=== PATIENT | male | born 1940 | race Caucasian/White ===

== ENCOUNTER 2019-06-27 19:14 | Emergency (ER) | payer OTHER, SELFPAY ==
[2019-06-27 19:25] VITALS: BP 167/101; PULSE 104; RESP 18; TEMP 37; O2SAT 97; BMI 24.4
--- NOTE | 2019-06-27 19:34 | XR_ITS ---
WS: [id number] LEFT HAND: 3 VIEW(S) TECHNIQUE: PA, oblique and lateral. HISTORY: trauma COMPARISON: None available. Minimally comminuted fracture involving the middle phalanx of the second finger. Fracture is displace d volarly with overlapping of the multiple fracture fragments. No definite intra-articular extension. There is an additional comminuted fracture without displacement involving the terminal tuft of the f ourth finger. Indeterminate for nondisplaced fracture terminal tuft of the third finger. Soft tissue swelling around the second, third and fourth fingers. XR/XR hand LT min 3V* [id number] IMPRESSION: 1. Comminuted fracture with overlapping and displaced fragments involving the middle phalanx second finger. 2. Comminuted but nondisplaced fracture terminal tuft fourth finger. 3. Indeterminate for nondisplaced fracture terminal tuft third finger.
--- NOTE | 2019-06-27 19:36 | ED_ITS ---
HPI - Wound/Laceration General: Chief Complaint: Wound/Laceration Stated Complaint: Left finger pain Time Seen by Provider: 06/27/19 19:25 History of Present Illness: HPI narrative: Patient was on a riding lawnmower and reach back to move the piece of equipment that catch the leaves and stuff and he was going on at the limb and he got caught between the limb and that piece of equipment and he sustained lacerations to 3 of his fingers. Tetanus is not up-to-date Onset (ago): minute(s) Location: other Extremity Location: Left: hand (Fingers) Place: home Patient tetanus UTD: No Context: accidental Associated symptoms: Reports no associated symptoms; Denies chills, fever(s), nausea or vomiting Treatments prior to arrival: bandage and other (Patient does take blood thinner) Review of Systems Const: Denies: fever, chills or body aches Eyes: Denies: change in vision or blurry vision ENMT: Denies: throat pain or nasal congestion Card: Denies: chest pain or shortness of breath on exertion Resp: Denies: shortness of breath, productive cough or non-productive cough GI: Denies: abdominal pain, nausea or vomiting : Denies: difficulty urinating Musc: Reports: extremity pain (Lacerations to 3 of his fingers on left hand possible fracture) Skin/Breast: Denies: rash Neuro: Denies: headache Psych: Denies: anxiety or depression Travis/Lymph: Denies: easy bruising PFSH ED PFSH: Social History Smoking and tobacco status: never smoked Physical Exam Const: COMMON NORMALS: no apparent distress, average body habitus and oriented x3 HENMT: COMMON NORMALS: normocephalic HEAD & SCALP: normal to inspection and normocephalic FACE & SINUS: normal facial exam Eye: COMMON NORMALS: conjunctivae normal GENERAL EYE: normal appearance of both eyes CONJUNCTIVA: Yes conjunctivae normal Neck/C-Spine: COMMON NORMALS: no JVD Chest: COMMONS NORMALS: inspection of chest normal Resp: COMMON NORMALS: normal respiratory effort and clear to auscultation bilaterally AUSCULTATION: clear to auscultation bilaterally Cardio: COMMON NORMALS: no JVD, regular rate and regular rhythm RATE: regular rate RHYTHM: regular rhythm GI: COMMON NORMALS: normal to inspection, nondistended, normoactive bowel sounds Extremity: COMMON NORMALS: normal to inspection and full ROM LEFT UPPER EXTREMITY: Yes hand & digits (Left #5 4 and 3 have deep and long lacerations irregular. Patient has full range of motion of all 3 fingers. Open to the bone. Neurovascular status intact. Tendon function appears normal in all 3 of those fingers. Ring finger might have a fracture feel like a pop when I moved it.) Neuro: COMMON NORMALS: oriented x3 Procedures Laceration Laceration 1: Site: hand Side (If applicable): left Size (cm): 3 Description: stellate, irregular and contaminated Depth: involves muscle layer Local Anesthetic: lidocaine 2% Amount of anesthesia used (mL): 2 Pre-repair: wound explored, irrigated extensively and wound margins revised Size (cm): 3-0 Number of sutures: 4 Laceration 2: Site: hand (#3 finger dorsal) Side (If applicable): left Size (cm): 5 Description: linear, irregular and contaminated Depth: simple, single layer and involves muscle layer Local Anesthetic: lidocaine 2% Amount of anesthesia used (mL): 3 Pre-repair: wound explored, irrigated extensively and deep structures intact Skin layer closed with: vicryl Size (cm): 3-0 Number of sutures: 15 Technique: simple, interrupted Laceration 3: Site: hand (#3 plamar) Side (If applicable): left Size (cm): 3 Description: irregular and contaminated Depth: simple, single layer Local Anesthetic: lidocaine 2% Amount of anesthesia used (mL): 2 Pre-repair: wound explored, irrigated extensively and deep structures intact Skin layer closed with: vicryl Size (cm): 3-0 Number of sutures: 6 Technique: simple, interrupted Laceration 4: Site: hand (#4 dorsal) Side (If applicable): left Size (cm): 4 Description: irregular and contaminated Depth: involves muscle layer Local Anesthetic: lidocaine 2% Amount of anesthesia used (mL): 2 Pre-repair: wound explored, irrigated extensively, deep structures intact and extensive debridement Skin layer closed with: vicryl Size (cm): 3-0 Number of sutures: 8 Technique: simple, interrupted Course Vital Signs: Vital signs: Vital Signs Temperature 98.6 F 06/27/19 19:25 Pulse Rate 104 H 06/27/19 19:25 Respiratory Rate 18 03/29/20 19:25 Blood Pressure 167/101 03/29/20 19:25 Pulse Oximetry 97 06/27/19 19:25 MDM - Wound/Laceration MDM Narrative: Medical decision making narrative: Spoke with Dr. Barillas and Dr. Serna about patient's injury Dr. Serna will see the patient up in his clinic tomorrow # [phone] Discharge Plan Discharge Prescriptions: No Action Unable to Assess RF: 0 Coding Level of Care Code ED [place] Blocker for Chg Fwd Exam Comprehensive
[2019-06-27] MEDS: tetanus-dipt-pertussis 0.5 mL SDV IM (19:52)
[2019-06-27] MEDS: cephALEXin 500 mg Capsule PO (20:42)
[2019-06-27] MEDS: lidocaine 2% INJ 20 mL INJECTION (20:42)
[2019-06-27 21:14] VITALS: BP 172/107; PULSE 97; RESP 18; O2SAT 100
--- NOTE | 2019-06-27 21:19 | PC.NURSE ---
Assessment reviewed and verified
== END 2019-06-27 21:14 | disposition home or self-care (01) ==
PROVIDERS: Emergency Provider Nurse Practitioner Family; Family Provider Nurse Practitioner; PCP Nurse Practitioner
DX: S61.217A Laceration without foreign body of left little finger without damage to nail, initial encounter (principal); S61.215A Laceration without foreign body of left ring finger without damage to nail, initial encounter; S61.213A Laceration without foreign body of left middle finger without damage to nail, initial encounter; W31.89XA Contact with other specified machinery, initial encounter; Y93.H9 Activity, other involving exterior property and land maintenance, building and construction; Z23 Encounter for immunization
CPT/HCPCS: 12004; 12042; 12045; 12345; 73130; 90471; 90715; 99281; 99283; J2001

== ENCOUNTER 2020-03-21 12:35 | Emergency (ER) | payer OTHER, MEDICARE, SELFPAY ==
[2020-03-21] VITALS (7 sets, daily range): BP systolic 132–156; BP diastolic 74–92; PULSE 72–82; RESP 16–18; TEMP 36.5; O2SAT 95–98; BMI 24.4
--- NOTE | 2020-03-21 13:03 | XR_ITS ---
WS: [id number] PELVIS AND BILATERAL HIPS TECHNIQUE: AP pelvis and AP and lateral hips. HISTORY: Pain COMPARISON: None available. Pelvis: Mild narrowing of the SI joints and hip joints. Facet joint arthritis in the lower lumbar spi ne with large osteophytes extending laterally from the disc spaces at L4-5. No osseous destruction. M oderate vascular calcifications in the iliac arteries. Right hip: Moderate narrowing of the hip joint. Sclerosis along the superior acetabulum. Irregularity along the cortical surfaces. Left hip: Mild to moderate narrowing of the hip joint with sclerosis along the superior acetabulum. N o fracture or osteolytic changes. XR/XR hip BI m 5V wo/w pel* [id number] IMPRESSION: 1. Moderate RIGHT hip joint osteoarthritis. 2. Mild to moderate LEFT hip joint osteoarthritis. 3. Moderate atherosclerosis iliac arteries.
--- NOTE | 2020-03-21 13:03 | XR_ITS ---
WS: [id number] PORTABLE CHEST HISTORY: Pain COMPARISON: 08/13/2017 No pneumonia. Normal vasculature. Benign granulomata in each lung with no change. No pleural effusion or pneumothorax. Cardiac size: Normal. Mediastinum/Aorta: Mild atherosclerosis aorta. No osseous abnormality seen. XR/XR chest 1V portable [id number] IMPRESSION: Unremarkable portable chest.
--- NOTE | 2020-03-21 14:11 | CTR_ITS ---
PROCEDURE INFORMATION: Exam: CT Chest With Contrast; Diagnostic Exam date and time: 03/21/2020 2:14 PM Age: 80 years old Clinical indication: Abdominal pain; Generalized; Chest pain; Type not specified; Prior surgery; Surgery date: 6+ months; Surgery type: Exploratory TECHNIQUE: Imaging protocol: Diagnostic computed tomography of the chest with intravenous contrast. Total images: 517 Radiation optimization: All CT scans at this facility use at least one of these dose optimization techniques: automated exposure control; mA and/or kV adjustment per patient size (includes targeted exams where dose is matched to clinical indication); or iterative reconstruction. Contrast material: VISIPAQUE 320; Contrast volume: 95 ml; Contrast route: INTRAVENOUS (IV); COMPARISON: CR XR chest 1V portable [id number] 03/21/2020 1:29 PM RADIATION DOSE METRICS: Total DLP (mGy-cm): 1347.48 FINDINGS: Lungs: No visible active interstitial or alveolar airspace disease. Stable calcified granulomas of antecedent disease. Pleural space: Scant right pleural effusion. Heart: Cardiac structures and configuration with mild cardiomegaly. Mild coronary artery disease. No visible pericardial effusion. Pulmonary arteries: No visible central pulmonary embolism/pulmonary arterial thrombus. Aorta: The thoracic aorta is nonaneurysmal. Moderate arterial sclerotic disease. 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 Lymph nodes: No visible active mediastinal or hilar lymphadenopathy. Bones/joints: Minimally displaced proximal sternum fracture just below the sternal angle. Degenerative disease of the spine with spondylosis deformans and diffuse idiopathic skeletal hyperostosis. Potential recent avulsion fracture of the T4 spinous process. Please correlate with site of pain. No other visible acute osseous abnormality within the field of view. Soft tissues: Unremarkable. IMPRESSION: 1. Minimally displaced proximal sternum fracture just below the sternal angle. 2. Potential recent avulsion fracture of the T4 spinous process. Please correlate with site of pain. 3. Scant right pleural effusion. 4. Mild cardiomegaly with associated mild coronary artery disease. PROCEDURE INFORMATION: Exam: CT Abdomen And Pelvis With Contrast Exam date and time: 03/21/2020 2:14 PM Age: 80 years old Clinical indication: Abdominal pain; Generalized; Chest pain; Type not specified; Prior surgery; Surgery date: 6+ months; Surgery type: Exploratory TECHNIQUE: Imaging protocol: Computed tomography of the abdomen and pelvis with intravenous contrast. Radiation optimization: All CT scans at this facility use at least one of these dose optimization techniques: automated exposure control; mA and/or kV adjustment per patient size (includes targeted exams where dose is matched to clinical indication); or iterative reconstruction. Contrast material: VISIPAQUE 320; Contrast volume: 95 ml; Contrast route: INTRAVENOUS (IV); COMPARISON: CR XR chest 1V portable [id number] 03/21/2020 1:29 PM RADIATION DOSE METRICS: Total DLP (mGy-cm): 1347.48 FINDINGS: Liver: Calcified hepatic granulomas of antecedent disease. No visible hepatic mass or cystic structure. Gallbladder and bile ducts: Cholelithiasis. Three gallstones are identified the largest measuring 9 mm. No gallbladder wall thickening or pericholecystic fluid. Pancreas: Pancreas unremarkable. No visible pancreatic ductal ectasia. Spleen: Calcified splenic granulomas of antecedent disease. Spleen otherwise unremarkable. Adrenal glands: Adrenal glands unremarkable. Kidneys and ureters: Stable bilateral simple renal cortical cysts. Largest cyst superior pole right kidney measures 32 mm. No follow-up recommended. No hydronephrosis or perinephric fluid. No visible nephrolithiasis. Renal arteriosclerosis. No visible ureterolithiasis. Stomach and bowel: Assessment of the hollow viscus fails to reveal evidence of active or acute pathology. Nonobstructed bowel pattern. No visible acute diverticulitis. No visible adynamic or reactive ileus. Minimal diverticulosis coli. Appendix: The appendix is visualized and appears noninflamed. Intraperitoneal space: No visible pneumoperitoneum. No visible intraperitoneal ascites. No visible evidence of mesenteric lymphadenitis or active mesenteritis/panniculitis. Vasculature: Portal vein patent. The abdominal aorta is nonaneurysmal. Extensive arterial sclerotic disease. Moderate intramural thrombus stable since last evaluation 2018. No intimal flap or dissection. Lymph nodes: No current visible evidence of active mesenteric or retroperitoneal lymphadenopathy. Urinary bladder: Urinary bladder unremarkable. Reproductive: Marked prostate hypertrophy. Bones/joints: Degenerative disease and degenerative disc disease of the spine most advanced L5/S1. Facet arthrosis. Spondylosis deformans. Scoliosis. Stable bone cyst and sclerotic focus left iliac bone since 2018. Soft tissues: Unremarkable. CT/CT chest abd pel w con* IMPRESSION: 1. No visible evidence of acute abdominal or pelvic pathologic process. 2. Cholelithiasis. 3. Other nonurgent, nonemergent, chronic, and age related findings as detailed in text above. COMMENTS: Consistent with the [employer]'s Incidental Findings Committee white paper ([employer] Marlon [employer]iol 2018): Any incidental renal lesion less than 1 cm or classified as too small to characterize, or any incidental cystic renal lesion characterized as simple-appearing, is likely benign. No follow-up imaging is recommended for these lesions per consensus recommendations based on imaging criteria. Radiation Dose CTDIVOL = (mGy): DLP = 1347.48~1347.48 (mGy-cm)
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
[2020-03-21] MEDS: morphine 4 mg/mL SDV 1 mL IVP ×2 (14:48→18:40)
[2020-03-21] MEDS: ondansetron 2 mg/ML SDV 2 mL 4 MG IVP ×2 (14:48→18:40)
[2020-03-21] MEDS: sodium chloride 0.9% 500 ML 999 ML IV (14:52)
[2020-03-21 15:17] LABS: Basophils % 0.5 %; Eosinophils # 0.1 10^3/uL (0.0-0.8); Eosinophils % 0.8 %; Hematocrit 39.1 % (42.0-52.0); Lymphocytes # 0.9 10^3/uL (0.8-4.8); Lymphocytes % 15.3 %; Mean Corpuscular HGB Conc 33.2 g/dL (30.0-36.0); Mean Corpuscular Hemoglobin 30.7 pg (28.0-34.0); Mean Corpuscular Volume 92.2 fL (80-94); Mean Platelet Volume 9.5 fL (7.4-10.4); Monocytes # 0.5 10^3/uL (0.2-0.9); Monocytes % 8.7 %; Neutrophils # 4.51 10^3/uL (1.8-7.7); Neutrophils % 74.4 %; Nucleated Red Blood Cells % 0 %; Platelet Count 157 10^3/cmm (130-400); Red Blood Count 4.24 10^6/uL (4.1-5.3); Red Cell Distribution Width 12.3 % (12.1-15.1); White Blood Count 6.1 10^3/uL (4.0-10.0)
[2020-03-21 15:40] LABS: Alanine Aminotransferase 12 U/L (0-41); Albumin Level 3.8 g/dL (3.5-5.2); Alkaline Phosphatase 69 IU/L (40-130); Aspartate Amino Transferase 22 U/L (0-40); Blood Urea Nitrogen 28 mg/dL (8-23); Calcium 9.1 mg/dL (8.5-10.5); Carbon Dioxide 27 mmol/L (22-29); Chloride 100 mmol/L (98-107); Globulin 2.9 g/dL (1.3-4.6); Glucose 114 mg/dL (65-115); Osmolality Calculated 290 mOsm/kg (285-295); Sodium 137 mmol/L (136-145); Total Bilirubin 1.9 mg/dL (0.15-1.2); Total Protein 6.7 g/dL (6.6-8.7)
[2020-03-21] MEDS: iodixanol 320 mg/mL 100mL Btl IV (16:54)
--- NOTE | 2020-03-21 19:00 | PC.NURSE ---
Assumed care from Gregoria BARAHONA
[2020-03-21 20:54] LABS: Add Urine Microscopic? YES; Bacteria Urine TRACE /hpf; Bilirubin Urine Neg (Negative); Blood Urine 3+ (Negative); Glucose Urine UA Norm (Normal); Ketones Urine Negative (Negative); Leukocyte Esterase Urine Negative (Negative); Nitrate Urine Negative (Negative); Protein Urine Trace (Negative); RBC Urine 0-4 /hpf (0-2); Specific Gravity, Urine 1.015 (1.005-1.030); Squamous Epithelial Cell Urine RARE /hpf (0-5); Urine Appearance Clear (CLEAR); Urine Color Yellow (Yellow); Urobilinogen Urine Norm (Negative); WBC Urine RARE /hpf (0-5); pH Urine 5 (5-7)
== END 2020-03-21 20:47 | disposition short-term general hospital (02) ==
PROVIDERS: Family Medicine; Emergency Provider Emergency Medicine; PCP Nurse Practitioner
DX: S22.20XA Unspecified fracture of sternum, initial encounter for closed fracture (principal); S22.048A Other fracture of fourth thoracic vertebra, initial encounter for closed fracture; Z79.01 Long term (current) use of anticoagulants; I48.20 Chronic atrial fibrillation, unspecified; J44.9 Chronic obstructive pulmonary disease, unspecified; I25.2 Old myocardial infarction; Z87.891 Personal history of nicotine dependence; V89.2XXA Person injured in unspecified motor-vehicle accident, traffic, initial encounter
CPT/HCPCS: 12345; 70450; 71045; 71260; 73523; 74177; 80053; 81001; 85025; 85610; 96374; 96375; 96376; 99283; 99285; J2270; J2405; J7040; Q9967

== ENCOUNTER 2020-04-24 12:27 | Emergency (ER) | payer MEDICARE, OTHER, SELFPAY ==
[2020-04-24 12:35] VITALS: BP 146/93; PULSE 108; RESP 14; TEMP 36.8; O2SAT 97; BMI 23.7
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
== END 2020-04-24 13:15 | disposition home or self-care (01) ==
PROVIDERS: Emergency Provider Nurse Practitioner Family; PCP Nurse Practitioner
DX: S39.012A Strain of muscle, fascia and tendon of lower back, initial encounter (principal); Z79.01 Long term (current) use of anticoagulants; I48.20 Chronic atrial fibrillation, unspecified; I25.2 Old myocardial infarction; Z87.891 Personal history of nicotine dependence; X58.XXXA Exposure to other specified factors, initial encounter
CPT/HCPCS: 12345; 99281

== ENCOUNTER 2021-09-05 14:28 | Emergency (ER) | payer OTHER, MEDICARE, SELFPAY ==
[2021-09-05 16:32] VITALS: BP 152/91; PULSE 117; RESP 16; TEMP 36.4; O2SAT 98; BMI 24.4
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
--- NOTE | 2021-09-05 17:10 | USR_ITS ---
PROCEDURE INFORMATION: Exam: US Duplex Right Lower Extremity Arteries Or Arterial Bypass Grafts Exam date and time: 09/05/2021 5:22 PM Age: 81 years old Clinical indication: Other: Cold leg. Pain; Additional info: Pulseless/cold limb TECHNIQUE: Imaging protocol: Right Real-time duplex scan of the arteries or arterial bypass grafts of the right lower extremity with 2-D brice scale, color Doppler flow and spectral waveform analysis. Images documented and saved. COMPARISON: CT chest abd pel w con* 03/21/2020 4:44 PM FINDINGS: Right common femoral artery: Negative for color flow seen in the lower extremity arterial system with monophasic pulse waveforms demonstrated in the distal iliac, common femoral and proximal femoral arteries, suggesting more proximal occlusion, consider further evaluation with an angiogram. Right superficial femoral artery: See above. Right popliteal artery: See above. Right calf/foot arteries: See above. Soft tissues: No hematoma or collection. US/[place] [id number] IMPRESSION: Negative for color flow seen in the lower extremity arterial system with monophasic pulse waveforms demonstrated in the distal iliac, common femoral and proximal femoral arteries, suggesting more proximal occlusion, consider further evaluation with an angiogram.
--- NOTE | 2021-09-05 17:11 | ECG_ITS ---
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 Measurements Intervals [place] Rate: 110 P: OR: QRS: -15 QRSD: 108 T: 95 QT: 328 QTc: 444 Interpretive Statements ATRIAL FIBRILLATION WITH RAPID VENTRICULAR RESPONSE SEPTAL MYOCARDIAL INFARCTION , OF INDETERMINATE AGE [40+ ms Q WAVE IN V1/V2] Compared to ECG 08/14/2017 04:36:34 Myocardial infarct finding now present ST (T wave) deviation no longer present Electronically Signed On 09-05-2021 20:16:46 CDT by Anselmo Raymundo M.D. [email or web address]
[2021-09-05 17:35] LABS: Basophils % 0.2 %; Hematocrit 41.8 % (42.0-52.0); Lymphocytes # 0.6 10^3/uL (0.8-4.8); Lymphocytes % 6.2 %; Mean Corpuscular HGB Conc 33.5 g/dL (30.0-36.0); Mean Corpuscular Hemoglobin 30.8 pg (28.0-34.0); Mean Corpuscular Volume 92.1 fl (80-94); Mean Platelet Volume 9.1 fL (7.4-10.4); Monocytes # 0.3 10^3/uL (0.2-0.9); Monocytes % 3.6 %; Neutrophils # 8.51 10^3/uL (1.8-7.7); Neutrophils % 89.7 %; Nucleated Red Blood Cells % 0 %; Platelet Count 198 10^3/cmm (130-400); Red Blood Count 4.54 10^6/uL (4.1-5.3); Red Cell Distribution Width 12.7 % (12.1-15.1); White Blood Count 9.5 10^3/uL (4.0-10.0)
[2021-09-05] MEDS: nitroglycerin 1 gm/inch oint Pkt 1 INCH TOPICAL (17:40)
[2021-09-05 17:41] VITALS: RESP 27; O2SAT 98
[2021-09-05] MEDS: morphine 4 mg/mL SDV 1 mL IVP ×2 (17:41→20:00)
[2021-09-05] MEDS: ondansetron 2 mg/ML SDV 2 mL 4 MG IVP (17:41)
[2021-09-05 17:54] LABS: Alanine Aminotransferase 10 U/L (0-41); Albumin Level 4.4 g/dL (3.5-5.2); Alkaline Phosphatase 76 IU/L (40-130); Anion Gap 17.7 (5-19); Aspartate Amino Transferase 15 U/L (0-40); Blood Urea Nitrogen 22 mg/dL (8-23); Calcium 9.3 mg/dL (8.5-10.5); Carbon Dioxide 24 mmol/L (22-29); Chloride 99 mmol/L (98-107); Globulin 2.9 g/dL (1.3-4.6); Glucose 174 mg/dL (65-115); Lipase 25 U/L (13-60); Magnesium 1.8 mg/dL (1.7-2.3); Osmolality Calculated 290 mOsm/kg (285-295); Potassium 4.7 mmol/L (3.5-5.1); Sodium 136 mmol/L (136-145); Total Bilirubin 0.7 mg/dL (0.15-1.2); Total Protein 7.3 g/dL (6.6-8.7)
[2021-09-05] MEDS: heparin 5,000 unit/mL INJ 1 mL IV (17:58)
[2021-09-05] MEDS: heparin drip 25,000 UNIT/500 ML PREMIX 22.86 UNIT IV (17:59)
[2021-09-05 18:02] LABS: INR 0.99 (0.8-1.2)
[2021-09-05 18:03] LABS: Partial Thromboplastin Time 24.2 SECONDS (23.9-36.7)
[2021-09-05 18:08] LABS: Lactic Sepsis W/Reflex 2.8 mmol/L (0.5-2.2)
[2021-09-05 19:43] LABS: Reflex Lactate Order REFLEX LACTIC ORDERD
[2021-09-05 20:00] VITALS: RESP 22; O2SAT 97
[2021-09-05] MEDS: sodium chloride 0.9% 1,000 ML 125 ML IV (20:01)
[2021-09-05] MEDS: sodium chloride 0.9% 250 ML IV (20:01)
== END 2021-09-05 20:17 ==
PROVIDERS: Emergency Medicine; Emergency Provider Family Medicine; PCP Nurse Practitioner
DX: I70.221 Atherosclerosis of native arteries of extremities with rest pain, right leg (principal); I48.20 Chronic atrial fibrillation, unspecified; I25.2 Old myocardial infarction; Z79.01 Long term (current) use of anticoagulants; Z87.891 Personal history of nicotine dependence
CPT/HCPCS: 80053; 83605; 83690; 83735; 85025; 85610; 85730; 93005; 93926; 96374; 96375; 96376; 99285; J1644; J2270; J2405; J7030; J7050

== ENCOUNTER → 2021-10-17 12:05 | Outpatient (BNVA) | payer OTHER, SELFPAY | PROVIDERS: PCP Nurse Practitioner; Visit Provider Internal Medicine | DX: I48.20 Chronic atrial fibrillation, unspecified (principal); I50.20 Unspecified systolic (congestive) heart failure; I73.9 Peripheral vascular disease, unspecified | CPT/HCPCS: 99204 ==

== ENCOUNTER → 2021-10-25 07:56 | Outpatient (BNVA) | payer OTHER, SELFPAY | PROVIDERS: PCP Nurse Practitioner; Visit Provider Podiatrist Foot & Ankle Surgery | DX: M21.611 Bunion of right foot (principal); M21.612 Bunion of left foot; I73.9 Peripheral vascular disease, unspecified; L60.3 Nail dystrophy; M20.41 Other hammer toe(s) (acquired), right foot; M20.42 Other hammer toe(s) (acquired), left foot | CPT/HCPCS: 11721; 99203 ==

== ENCOUNTER → 2021-10-31 09:39 | Outpatient (BNVA) | payer OTHER, SELFPAY | PROVIDERS: PCP Nurse Practitioner; Visit Provider Nurse Practitioner Family | DX: N40.1 Benign prostatic hyperplasia with lower urinary tract symptoms (principal) | CPT/HCPCS: 51741; 51798; 81003; 99213 ==

== ENCOUNTER → 2022-01-16 15:14 | Outpatient (BNVA) | payer OTHER, SELFPAY | PROVIDERS: PCP Nurse Practitioner; Visit Provider Internal Medicine | DX: I48.20 Chronic atrial fibrillation, unspecified (principal); I50.20 Unspecified systolic (congestive) heart failure; I73.9 Peripheral vascular disease, unspecified; Z87.891 Personal history of nicotine dependence | CPT/HCPCS: 99214 ==

== ENCOUNTER → 2022-02-12 12:24 | Outpatient (BNVA) | payer OTHER, SELFPAY | PROVIDERS: PCP Nurse Practitioner; Visit Provider Urology | DX: R31.29 Other microscopic hematuria (principal); N40.1 Benign prostatic hyperplasia with lower urinary tract symptoms | CPT/HCPCS: 51741; 51798; 81003; 99213 ==

== ENCOUNTER → 2022-07-17 15:10 | Outpatient (BNVA) | payer OTHER, SELFPAY | PROVIDERS: PCP Nurse Practitioner; Visit Provider Internal Medicine | DX: I48.20 Chronic atrial fibrillation, unspecified (principal); I50.20 Unspecified systolic (congestive) heart failure; I73.9 Peripheral vascular disease, unspecified; Z87.891 Personal history of nicotine dependence; Z79.01 Long term (current) use of anticoagulants | CPT/HCPCS: 99214 ==

== ENCOUNTER 2023-02-07 13:56 | Emergency (ER) | payer OTHER, SELFPAY ==
[2023-02-07 13:58] VITALS: PULSE 73; RESP 18; TEMP 36.9; O2SAT 94; BMI 23.0
[2023-02-07 14:05] VITALS: BP 126/70
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
== END 2023-02-07 14:27 | disposition home or self-care (01) ==
PROVIDERS: Emergency Provider Physician Assistant; PCP Nurse Practitioner
DX: Z04.1 Encounter for examination and observation following transport accident (principal); Z79.01 Long term (current) use of anticoagulants; Z79.02 Long term (current) use of antithrombotics/antiplatelets; Z87.891 Personal history of nicotine dependence; J44.9 Chronic obstructive pulmonary disease, unspecified; I25.2 Old myocardial infarction; V89.2XXA Person injured in unspecified motor-vehicle accident, traffic, initial encounter
CPT/HCPCS: 99281

== ENCOUNTER → 2023-06-02 12:43 | Outpatient (BNVA) | payer OTHER, SELFPAY | PROVIDERS: PCP Nurse Practitioner; Visit Provider Internal Medicine | DX: I48.20 Chronic atrial fibrillation, unspecified (principal); Z79.01 Long term (current) use of anticoagulants; I50.20 Unspecified systolic (congestive) heart failure; I73.9 Peripheral vascular disease, unspecified; Z87.891 Personal history of nicotine dependence | CPT/HCPCS: 99214 ==

== ENCOUNTER 2023-06-05 09:34 | Outpatient (CLI) | payer OTHER, SELFPAY ==
--- NOTE | 2023-06-05 10:00 | USCV_ITS ---
Shilo Alphonse Age: 83 Gender: M : 1940 Exam Date: 06/05/2023 10:14 Ordering Phys: Tavares Hassan M.D ([email or web address]) Technologist: MINNA Exam Location: [facility] – [place] Indication: murmur BP: 123 / 73 HR: 0 Rhythm: Sinus Technical Quality: Adequate MEASUREMENTS (Male / Female) Normal Values 2D ECHO LV Diastolic Diameter PLAX 5.1 cm 4.2 - 5.9 / 3.9 - 5.3 cm IVS Diastolic Thickness 1.1 cm 0.6 - 1.0 / 0.6 - 0.9 cm IVS Systolic Thickness 1.6 cm LVPW Diastolic Thickness 1.2 cm 0.6 - 1.0 / 0.6 - 0.9 cm LVPW Systolic Thickness 1.9 cm LVOT Diameter 2.0 cm LV Ejection Fraction 2D Teich 61.5 % LV Ejection Fraction MOD 2C 52.7 % LV Ejection Fraction 2C AL 54.4 % LA Diameter 3.4 cm RA Systolic Volume 4C AL 79.5 ml RA Systolic Volume 4C MOD 78.7 ml Aorta at Sinotubular Diameter 2.9 cm IVC Diameter 1.5 cm M-MODE LA Ao Ratio MM 1.1 AV Cusp Separation MM 2.7 cm DOPPLER AV Peak Velocity 95.0 cm/s LVOT Peak Velocity 71.0 cm/s AV Area Cont Eq vti 2.6 cm squared AV Area Cont Eq pk 2.3 cm squared MV Peak Velocity 82.0 cm/s MV Area PHT 4.1 cm squared Mitral E to A Ratio 1.7 TR Peak Velocity 285.0 cm/s TR Peak Gradient 32.5 mmHg TR Mean Velocity 194.0 cm/s TR Mean Gradient 18.3 mmHg TR Velocity Time Integral 77.4 cm TV Peak E Velocity 135.0 cm/s PV Peak Velocity 72.0 cm/s FINDINGS Left Ventricle Left ventricle is normal in size. LV systolic function is normal with EF of 55 to 60%. No regional wall motion abnormalities are seen. Right Ventricle Normal in size and function Right Atrium Dilated Left Atrium Severely dilated Mitral Valve Structurally normal mitral valve. Mild to moderate mitral regurgitation. Aortic Valve Structurally normal aortic valve. Mild aortic regurgitation. Tricuspid Valve Mild tricuspid regurgitation. Pulmonary artery systolic pressure is normal. Pulmonic Valve Mild pulmonic regurgitation. Pericardium Normal in size Aorta Normal in size IVC Appears to be normal CONCLUSIONS LV systolic function is normal with EF of 55 to 60%. Biatrial dilation. Mild to moderate mitral regurgitation. Mild aortic regurgitation Mild tricuspid regurgitation Mild pulmonic regurgitation Tavares Hassan MD (Electronically Signed) Final Date: 19 June 2023 12:40 S
== END 2023-06-05 09:35 | disposition home or self-care (01) ==
LOC: RAD 09:34
PROVIDERS: PCP Nurse Practitioner; Visit Provider Internal Medicine
DX: R07.9 Chest pain, unspecified (principal); R06.02 Shortness of breath
CPT/HCPCS: 93306

== ENCOUNTER 2023-07-18 11:08 | Inpatient (IN) | payer OTHER, SELFPAY ==
[2023-07-18] VITALS (26 sets, daily range): BP systolic 110–170; BP diastolic 70–129; PULSE 95–147; RESP 16–99; TEMP 36.4–36.5; O2SAT 82–100; BMI 24.4
--- NOTE | 2023-07-18 11:12 | CTR_ITS ---
PROCEDURE INFORMATION: Exam: CT Cervical Spine Without Contrast Exam date and time: 07/18/2023 11:25 AM Age: 83 years old Clinical indication: Injury or trauma; Fall; Blunt trauma TECHNIQUE: Imaging protocol: Computed tomography of the cervical spine without contrast. Radiation optimization: All CT scans at this facility use at least one of these dose optimization techniques: automated exposure control; mA and/or kV adjustment per patient size (includes targeted exams where dose is matched to clinical indication); or iterative reconstruction. COMPARISON: CT head wo con* [id number] 07/18/2023 11:25 AM RADIATION DOSE METRICS: Total DLP (mGy-cm): 674.6 FINDINGS: Bones/joints: Chronic degenerative changes are present in the cervical spine with osteophytes on the vertebral bodies and facet joint narrowing and hypertrophy. No fracture or other acute abnormality. No significant malalignment. Lungs: Bilateral upper lobe pulmonary infiltrates Vasculature: Bilateral carotid artery calcification. Soft tissues: Unremarkable. CT/CT cervical spin wo con* [id number] IMPRESSION: 1. No acute abnormality in the cervical spine. 2. Bilateral upper lobe pulmonary infiltrates.
--- NOTE | 2023-07-18 11:12 | CTR_ITS ---
PROCEDURE INFORMATION: Exam: CT Head Without Contrast Exam date and time: 07/18/2023 11:25 AM Age: 83 years old Clinical indication: Injury or trauma; Fall; Unconscious TECHNIQUE: Imaging protocol: Computed tomography of the head without contrast. Radiation optimization: All CT scans at this facility use at least one of these dose optimization techniques: automated exposure control; mA and/or kV adjustment per patient size (includes targeted exams where dose is matched to clinical indication); or iterative reconstruction. COMPARISON: CT head wo con* [id number] 03/21/2020 4:38 PM RADIATION DOSE METRICS: Total DLP (mGy-cm): 798.6 FINDINGS: Brain: There is hypodensity consistent with edema in the right basal ganglia, internal capsule and right periventricular estrada radiata which is consistent with recent nonhemorrhagic infarct. There is generalized chronic atrophy with prominence of the ventricles and sulci. Cerebral ventricles: Ventricles are prominent consistent with chronic atrophy. Paranasal sinuses: Visualized sinuses are unremarkable. No fluid levels. Mastoid air cells: Visualized mastoid air cells are well aerated. Bones/joints: Unremarkable. No acute fracture. Soft tissues: Unremarkable. CT/CT head wo con* [id number] IMPRESSION: Hypodensity consistent with edema in the right basal ganglia, internal capsule and periventricular white matter consistent with recent nonhemorrhagic infarct.
--- NOTE | 2023-07-18 11:12 | XR_ITS ---
WS: [id number] Exam: XR chest 1V portable [id number] Date/Time of Exam: 07/18/2023 11:12 AM Reason For Exam: fall Comparison 03/21/2020. Mild interstitial infiltrate in the LEFT upper lobe. Remaining lung lester are clear. No pneumothorax . No pleural effusion. Heart size top limits normal. The mediastinum is normal in contour. IMPRESSION: 1. Mild interstitial infiltrate in the LEFT upper lobe. Developing pneumonia not excluded.
--- NOTE | 2023-07-18 11:12 | CTR_ITS ---
PROCEDURE INFORMATION: Exam: CTA Chest With Contrast Exam date and time: 07/18/2023 11:31 AM Age: 83 years old Clinical indication: Injury or trauma; Fall; Generalized; Blunt trauma (contusions or hematomas); Additional info: SOB, fall TECHNIQUE: Imaging protocol: Computed tomographic angiography of the chest with contrast. Exam focused on the arteries. 3D rendering (Not supervised by radiologist): MIP and/or 3D reconstructed images were created by the technologist. Radiation optimization: All CT scans at this facility use at least one of these dose optimization techniques: automated exposure control; mA and/or kV adjustment per patient size (includes targeted exams where dose is matched to clinical indication); or iterative reconstruction. Contrast material: OMNI 350; Contrast volume: 100 ml; Contrast route: INTRAVENOUS (IV); COMPARISON: CT chest abdpel w/*[id number] 03/21/2020 4:44 PM RADIATION DOSE METRICS: Total DLP (mGy-cm): 1131.88 FINDINGS: Pulmonary arteries: No pulmonary arterial embolism seen. Aorta: Aortic atherosclerotic disease. Lungs: Consolidation in the anterior portions of both upper lobes. Lesser degree of consolidation right middle lobe. Pleural spaces: Small bilateral pleural effusions. Heart: Unremarkable. No cardiomegaly. No pericardial effusion. Lymph nodes: Unremarkable. No enlarged lymph nodes. Bones/joints: Diffuse degenerative disc disease. No acute bony abnormality seen. Remote sternal fracture. Soft tissues: Unremarkable. PROCEDURE INFORMATION: Exam: CT Abdomen And Pelvis With Contrast Exam date and time: 07/18/2023 11:31 AM Age: 83 years old Clinical indication: Injury or trauma; Fall; Generalized; Blunt trauma (contusions or hematomas); Additional info: SOB, fall TECHNIQUE: Imaging protocol: Computed tomography of the abdomen and pelvis with contrast. Radiation optimization: All CT scans at this facility use at least one of these dose optimization techniques: automated exposure control; mA and/or kV adjustment per patient size (includes targeted exams where dose is matched to clinical indication); or iterative reconstruction. Contrast material: OMNI 350; Contrast volume: 100 ml; Contrast route: INTRAVENOUS (IV); COMPARISON: CT chest abdpel w/*[id number] 03/21/2020 4:44 PM RADIATION DOSE METRICS: Total DLP (mGy-cm): 1131.88 FINDINGS: Liver: Hepatic steatosis. Punctate granulomata in the liver. No liver mass. Gallbladder and bile ducts: Multiple small gallstones. No gallbladder wall thickening. Gallbladder is mildly distended. Pancreas: Normal. No ductal dilation. Spleen: Normal. No splenomegaly. Adrenal glands: Normal. No mass. Kidneys and ureters: Multiple cysts in the kidneys. No evidence for renal obstruction. Stomach and bowel: Unremarkable. No obstruction. No mucosal thickening. Appendix: No evidence of appendicitis. Intraperitoneal space: Unremarkable. No free air. No significant fluid collection. Vasculature: Diffuse aortoiliac atherosclerotic disease with large amount of mural thrombus. Substantial calcifications in stenosis bilateral iliac arteries, most prominently origin of left common iliac. Lymph nodes: Unremarkable. No enlarged lymph nodes. Urinary bladder: Bladder is distended. Reproductive: Prostatic hypertrophy measuring up to 7 cm. Bones/joints: Diffuse degenerative changes in the lumbar spine. Mild anterolisthesis L4-L5. Mild nonacute L2 compression fracture. Soft tissues: Unremarkable. CT/CT angio chest w abd pel w con IMPRESSION: 1. Consolidation in the anterior portions of both upper lobes. Lesser degree of consolidation right middle lobe. 2. No pulmonary arterial embolism seen. IMPRESSION: 1. 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 Substantial calcifications in stenosis bilateral iliac arteries, most prominently origin of left common iliac. 2. Prostatic hypertrophy with distended bladder. Question bladder outlet obstruction. COMMENTS: Consistent with the [place] [employer]'s Incidental Findings Committee white paper (J Am Marlon Radiol 2018): Any incidental renal lesion less than 1 cm or classified as too small to characterize, or any incidental cystic renal lesion characterized as simple-appearing, is likely benign. No follow-up imaging is recommended for these lesions per consensus recommendations based on imaging criteria.
--- NOTE | 2023-07-18 11:13 | ECG_ITS ---
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 Measurements Intervals [place] Rate: 111 P: 0 [place]: 0 QRS: 40 QRSD: 107 T: 216 QT: 337 QTc: 459 Interpretive Statements ATRIAL FIBRILLATION WITH RAPID VENTRICULAR RESPONSE ANTEROSEPTAL MYOCARDIAL INFARCTION , PROBABLY OLD [40+ ms Q WAVE IN V1-V4] MODERATE T-WAVE ABNORMALITY, CONSIDER LATERAL ISCHEMIA [-0.1+ mV T-WAVE IN I/aVL/V5/V6] MODERATE T-WAVE ABNORMALITY, CONSIDER INFERIOR ISCHEMIA [-0.1+ mV T-WAVE IN II/aVF] Compared to ECG 09/05/2021 17:59:05 T-wave abnormality now present Possible ischemia now present Myocardial infarct finding still present Electronically Signed On 07-18-2023 17:00:41 CDT by Anselmo Raymundo M.D. [id number]
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
--- NOTE | 2023-07-18 11:25 | PC.PHAR ---
Addendum entered by Cecilia Smith 07/18/23 12:49: pt unable to verify medications-medications [facility] and [facility] on [facility] on [facility] except for eliquis 5mg bid-called angel garza at the [facility] [phone] states looked in chart says pt has medication on hand states that should mean the pt is still taking but has a build up of the medications- Original Note[facility]
[2023-07-18] MEDS: iohexol 350 mg/mL 500 mL Btl (per mL) IV (11:32)
[2023-07-18] MEDS: sodium chloride 0.9% 1,000 ML 999 ML IV ×2 (11:45→14:16)
[2023-07-18 11:46] LABS: ABG PCO2 31.6 mmHg (35-45); ABG PH Result 7.43 (7.35-7.45); Arterial Blood Gas Hematocrit 33.4 % (42-52); Base Excess ABG -2.6 mmol/L (-2.0-2.0); Blood Gas Allen Test Pos; Blood Gas Operator Identificat CAK; Blood Gas Sample Site Radial, left; Blood Gas Sample Type Arterial; Oxygen Device NC; PO2 FiO2 Ratio Arterial Blood 0
[2023-07-18 12:02] LABS: Glucose Point of Care 123 mg/dL (70-110)
[2023-07-18] MEDS: amiodarone 150 MG/100 ML PREMIX 400 MG IV (12:19)
--- NOTE | 2023-07-18 12:20 | PC.NURSE ---
PATIENT CRAIG PLACED. NURSE USED CRAIG KIT, CATH HAD TO BE REPLACED WITH 18 FR COUDE CATH. UPON REMOVAL OF FIRST ATTEMPT, BLOOD FROM PENIS, BUT CONTROLLED AND QUICKLY STOPPED. PATIENT ROLLED AND CLEANED, NEW LINENS PROVIDED. PATIENT HAS LARGE PRESSURE WOUNDS TO LATERAL LEFT THIGH AND LATERAL LEFT KNEE. PROVIDER PRESENT TO NOTE WOUNDS. PATIENT MADE COMFORTABLE IN BED.
[2023-07-18] MEDS: piperacillin-tazobactam 3.375 GM in sodium chloride 0.9% (plus) 50 ML IV ×3 (12:23→22:35)
[2023-07-18 12:27] LABS: Add Urine Microscopic? YES; Bilirubin Urine Neg (Negative); Blood Urine 3+ (Negative); Glucose Urine UA Norm (Normal); Ketones Urine Negative (Negative); Leukocyte Esterase Urine Negative (Negative); Nitrate Urine Negative (Negative); Protein Urine 1+ (Negative); Specific Gravity, Urine 1.025 (1.005-1.030); Urine Appearance Clear (CLEAR); Urine Color Yellow (Yellow); Urobilinogen Urine Norm (Negative); pH Urine 5 (5-7)
--- NOTE | 2023-07-18 12:29 | PC.NURSE ---
NO CONTACTS BESIDE . NURSE ACCESSED CHART TO SEE IF OTHER FAMILY MEMBERS LISTED.
[2023-07-18 12:31] LABS: Add Urine Culture? No; Bacteria Urine TRACE /hpf; Mucus Urine TRACE /hpf; WBC Urine RARE /hpf (0-5)
[2023-07-18 12:46] LABS: Basophils % 0.2 %; Hematocrit 36.5 % (37-53); Lymphocytes # 0.4 10^3/uL (0.8-4.8); Lymphocytes % 4.1 %; Mean Corpuscular HGB Conc 31.2 g/dL (30-55); Mean Corpuscular Hemoglobin 26.2 pg (27-33); Mean Corpuscular Volume 83.9 fl (82-101); Mean Platelet Volume 10.3 fL (7.4-10.4); Monocytes % 9.3 %; Neutrophils # 9.34 10^3/uL (1.8-7.7); Neutrophils % 86.1 %; Nucleated Red Blood Cells % 0 %; Platelet Count 171 10^3/cmm (157-399); Red Blood Count 4.35 10^6/uL (3.85-5.65); Red Cell Distribution Width 15.3 % (12.1-15.1); White Blood Count 10.84 10^3/uL (3.29-11.43)
[2023-07-18] MEDS: vancomycin 1,000 MG in sodium chloride 0.9% 250 ML 250 MG IV (12:55)
[2023-07-18 13:09] LABS: INR 1.22 (0.8-1.2)
--- NOTE | 2023-07-18 13:13 | ECG_ITS ---
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 Measurements Intervals [place] Rate: 119 P: 0 ND: 0 QRS: 73 QRSD: 113 T: 259 QT: 329 QTc: 464 Interpretive Statements ATRIAL FIBRILLATION WITH RAPID VENTRICULAR RESPONSE SEPTAL MYOCARDIAL INFARCTION , PROBABLY OLD [40+ ms Q WAVE IN V1/V2] MODERATE T-WAVE ABNORMALITY, CONSIDER LATERAL ISCHEMIA [-0.1+ mV T-WAVE IN I/aVL/V5/V6] MODERATE T-WAVE ABNORMALITY, CONSIDER INFERIOR ISCHEMIA [-0.1+ mV T-WAVE IN II/aVF] INTERPRETATION BASED ON A DEFAULT AGE OF 40 YEARS Compared to ECG 07/18/2023 11:17:09 No significant changes Electronically Signed On 07-18-2023 17:03:46 CDT by Anselmo Raymundo M.D. [id number] [email or web address]
[2023-07-18 13:18] LABS: Lactic Sepsis W/Reflex 3.5 mmol/L (0.5-2.2)
[2023-07-18 13:21] LABS: Troponin(5th) Baseline 92 ng/L (0-15)
[2023-07-18 13:29] LABS: Alanine Aminotransferase 30 U/L (0-41); Albumin Level 3.6 g/dL (3.5-5.2); Alkaline Phosphatase 68 U/L (40-130); Anion Gap 19.7 (5-19); Aspartate Amino Transferase 85 U/L (0-40); Blood Urea Nitrogen 56 mg/dL (8-23); Calcium 8.7 mg/dL (8.5-10.5); Carbon Dioxide 20 mmol/L (22-29); Chloride 105 mmol/L (98-107); Globulin 2.2 g/dL (1.3-4.6); Glucose 130 mg/dL (65-115); Osmolality Calculated 307 mOsm/kg (285-295); Potassium 4.7 mmol/L (3.5-5.1); Sodium 140 mmol/L (136-145); Thyroid Stimulating Hormone 1.53 uIU/mL (0.27-4.20); Total Bilirubin 1.5 mg/dL (0.15-1.2); Total Protein 5.8 g/dL (6.6-8.7)
[2023-07-18 13:48] LABS: Creatinine Clr Calc Pharmacy 30.8073
[2023-07-18 13:51] LABS: Creatine Phosphokinase 4318 U/L (39-308); NT Pro B Type Natriuretic Pept 56657 pg/mL (0-450)
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
[2023-07-18 14:28] LABS: Reflex Lactate Order REFLEX LACTIC ORDERD
[2023-07-18 14:31] LABS: Troponin 5 2HR 81.14 ng/L (0-15)
[2023-07-18 14:43] LABS: Troponin 5 2HR Delta -10.86 ABS# (0-10)
[2023-07-18] MEDS: sodium chloride 0.9% 1,000 ML 100 ML IV ×2 (15:40→23:36)
[2023-07-18] MEDS: enoxaparin 40 mg/0.4 mL Syringe SUBCUT (15:40)
[2023-07-18] MEDS: famotidine 20 mg/2 mL INJ IVP (15:42)
[2023-07-18 16:17] LABS: Glucose Point of Care 117 mg/dL (70-110)
--- NOTE | 2023-07-18 16:48 | PC.NURSE ---
Received patient from ER staff at 1525. BP: 112/89, RR: 20, Temp: 97.7, SPO2: 100% on 2 L NC. HR is 105 and AFIB.... Mental status is altered, will look at you if you call his name but nothing else. No speech. Deep tissue pressure injury to left shoulder, Left hip, and left lateral lower leg.
--- NOTE | 2023-07-18 17:13 | ECG_ITS ---
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 Measurements Intervals [place] Rate: 107 P: 0 AL: 0 QRS: 31 QRSD: 118 T: 207 QT: 365 QTc: 487 Interpretive Statements ATRIAL FIBRILLATION WITH RAPID VENTRICULAR RESPONSE MODERATE INTRAVENTRICULAR CONDUCTION DELAY [105+ ms QRS DURATION, 80+ ms Q/S IN V1/V2, NO Q AND 60+ ms R IN I/aVL/V5/V6] ST DEVIATION AND MODERATE T-WAVE ABNORMALITY, CONSIDER LATERAL ISCHEMIA [-0.1+ mV T-WAVE IN I/aVL/V5/V6] Compared to ECG 07/18/2023 13:33:53 Intraventricular conduction delay now present Myocardial infarct finding no longer present T-wave abnormality still present Possible ischemia still present Electronically Signed On 07-19-2023 9:19:28 CDT by Juan Kapoor M.D. [email or web address] union [email or web address]/[id number]
[2023-07-18 17:40] LABS: Lactic Acid level (Lactate) 2.9 mmol/L (0.5-2.2)
[2023-07-18 19:09] LABS: Troponin 5 6HR 85.41 ng/L (0-15)
[2023-07-18 19:10] LABS: Troponin 5 6HR Delta -6.59 ng/L (0-12)
--- NOTE | 2023-07-18 20:30 | PC.NURSE ---
Patient is intermittantly restless in bed. Removed the ecg leads x3. and O2 x1. Repositioned for comfort. Patient moans when turning him and does not speak.
[2023-07-18 20:38] LABS: Glucose Point of Care 98 mg/dL (70-110)
--- NOTE | 2023-07-18 23:26 | PC.NURSE ---
Patient without measurable urine output since 1899. Drops of pale urine noted in kee catheter tubing. Bladder scan done. Results were 518 ml & 438. Irrigated catheter with 50 ml sterile water. Catheter irrigated easily. Still no return. Catheter removed; tip of catheter had mucous and blood. New 16 fr. catheter placed. Small amount of bloody urine in tubing, followed by 500ml dark yellow urine.
[2023-07-19] VITALS (16 sets, daily range): BP systolic 87–135; BP diastolic 60–90; PULSE 86–120; RESP 16–28; TEMP 36.4–37.1; O2SAT 87–100
[2023-07-19] MEDS: famotidine 20 mg/2 mL INJ IVP ×2 (03:19→15:39)
[2023-07-19 06:02] LABS: Basophils % 0.1 %; Hematocrit 32.9 % (37-53); Lymphocytes # 0.5 10^3/uL (0.8-4.8); Lymphocytes % 4.7 %; Mean Corpuscular HGB Conc 30.1 g/dL (30-55); Mean Corpuscular Volume 86.4 fl (82-101); Mean Platelet Volume 10.5 fL (7.4-10.4); Monocytes # 0.7 10^3/uL (0.2-0.9); Neutrophils # 8.62 10^3/uL (1.8-7.7); Neutrophils % 87.6 %; Nucleated Red Blood Cells % 0 %; Platelet Count 132 10^3/cmm (157-399); Red Blood Count 3.81 10^6/uL (3.85-5.65); Red Cell Distribution Width 15.8 % (12.1-15.1); White Blood Count 9.84 10^3/uL (3.29-11.43)
[2023-07-19] MEDS: piperacillin-tazobactam 3.375 GM in sodium chloride 0.9% (plus) 50 ML IV ×3 (06:16→23:30)
[2023-07-19 06:18] LABS: INR 1.23 (0.8-1.2)
[2023-07-19 06:24] LABS: Alanine Aminotransferase 36 U/L (0-41); Albumin Level 3.1 g/dL (3.5-5.2); Alkaline Phosphatase 57 U/L (40-130); Anion Gap 17.3 (5-19); Aspartate Amino Transferase 74 U/L (0-40); Blood Urea Nitrogen 54 mg/dL (8-23); Calcium 8.3 mg/dL (8.5-10.5); Carbon Dioxide 19 mmol/L (22-29); Chloride 112 mmol/L (98-107); Globulin 2.1 g/dL (1.3-4.6); Glucose 118 mg/dL (65-115); Osmolality Calculated 314 mOsm/kg (285-295); Potassium 4.3 mmol/L (3.5-5.1); Sodium 144 mmol/L (136-145); Total Bilirubin 0.8 mg/dL (0.15-1.2); Total Protein 5.2 g/dL (6.6-8.7)
[2023-07-19 06:30] LABS: NT Pro B Type Natriuretic Pept 29612 pg/mL (0-450)
[2023-07-19 07:47] LABS: Bacillus cereus group Not Detected (NOT DETECT); Bacillus subtillis group Not Detected (NOT DETECT); Corynebacterium Not Detected (NOT DETECT); Cutibacterium acnes (P.acnes) Not Detected (NOT DETECT); Enterococcus Not Detected (NOT DETECT); Enterococcus faecalis Not Detected (NOT DETECT); Enterococcus faecium Not Detected (NOT DETECT); Lactobacillus species Not Detected (NOT DETECT); Listeria Not Detected (NOT DETECT); Listeria monocytogenes Not Detected (NOT DETECT); Micrococcus Not Detected (NOT DETECT); Pan Candida Not Detected (NOT DETECT); Pan Gram-Negative Not Detected (NOT DETECT); Staphylococcus epidermidis Detected (NOT DETECT); Staphylococcus lugdunensis Not Detected (NOT DETECT); Staphylococcus species Detected (NOT DETECT); Streptococcus agalactiae Not Detected (NOT DETECT); Streptococcus anginosus group Not Detected (NOT DETECT); Streptococcus pneumoniae Not Detected (NOT DETECT); Streptococcus pyogenes Not Detected (NOT DETECT); Streptococcus species Not Detected (NOT DETECT); mecA Detected (NOT DETECT); mecC Not Detected (NOT DETECT)
[2023-07-19] MEDS: sodium chloride 0.9% 1,000 ML 100 ML IV ×2 (10:24→21:30)
[2023-07-19] MEDS: vancomycin 1,000 MG in sodium chloride 0.9% 250 ML 250 MG IV (12:43)
--- NOTE | 2023-07-19 17:04 | P.PN_ITS ---
Subjective 2 Subjective: No acute overnight events noted. Was seen at bedside, still drowsy lethargic, minimal eye-opening to verbal stimuli Medications: Reviewed: Yes Vitals/I&O/Wt Last Vital Signs Temp 97.9 F 07/19/23 14:00 Pulse 99 07/19/23 14:00 Resp 19 H 07/19/23 14:00 BP 129/78 07/19/23 14:00 Pulse Ox 100 07/19/23 12:00 O2 Del Method Nasal Cannula 07/19/23 12:00 O2 Flow Rate 2 07/19/23 12:00 07/19/23 07/19/23 07/19/23 06:59 14:59 22:59 Intake Total 843.333 / 2493.333 1250 / 1250 Output Total 250 / 1150 Balance 593.333 / 4540.149 0409 / 1250 Weight last 48 hrs Weight 74.899 kg Weight 76.204 kg Weight 81.647 kg Physical Exam 2 Narrative: He is lethargic, drowsy but eye-opening present on verbal stimuli, none comprehensive not in acute distress Chest air entry equal on both sides, minimal decreased air entry in right upper lobe Cardiovascular normal heart sounds rate and rhythm irregular Abdominal soft nondistended normal bowel sounds Extremities no edema noted bilateral lower extremity. He has stage I decubitus in left upper shoulder and left lower extremity. Urinary Catheter Management: Coude: Cath Placed During This Visit: yes Reason for Continuing Indwelling Catheter: Accurate Measurement of Urinary Output in Critically Ill Patients Urinary Catheter Date of Insertion: 07/18/23 Urinary Catheter Time of Insertion: 23:00 Data 07/19/23 05:41 07/19/23 05:41 Micro: Microbiology 07/18/23 12:24 Blood Culture - Preliminary Blood NEGATIVE TO DATE 07/18/23 13:01 Blood Culture - Preliminary Blood Staphylococcus epidermidis A&P Assessment and plan (1) AMS (altered mental status): (2) Rhabdomyolysis: (3) Atrial fibrillation with RVR: (4) Pneumonia: (5) CVA (cerebral vascular accident): (6) Peripheral artery disease: (7) BPH NOS w ur obs/LUTS: (8) Chronic obstructive pulmonary disease, unspecified: Plan Alphonse Lao is a 83 year old male with past medical history of COPD, atrial fibrillation on eliquis, peripheral arterial disease, urethral strictures, BPH, HFrEF 15% now improved to 55% on recent ECHO , acute limb ischemia s/p femoral endarterectomy and thrombectomy, s/p RCA with GURPREET x2, hematuria was BIB EMS fo AMS, and atrial fibrillation with RVR in 140s. As per the ER physician he was noticed by his neighbors lying on the floor for unknown number of days. His 1 month ago and he has been living alone in unknown conditions. There is no family member listed in the system. On arrival to ER he was found to have stroke on CT head and was hypotensive The chest and abdomen showed bilaterally upper lobe pneumonia, no PE and extensive peripheral arterial disease with mural thrombus. WBC count of 10 , INR 1.2 , acute renal failure with creatinine of 2.0 , baseline creatinine is 1.3 , CK 4300 and BNP 56,000 and lactic 3.5 He was in A-fib with RVR he was started on IV amiodarone drip He received 2 L normal saline bolus in the ER. #AMS likely secondary to recent stroke/ pneumonia and dehydration. Continue cardiopulmonary monitoring. #Atrial fibrillation with RVR- Will continue amiodarone drip for now. Continue home medications metoprolol 12.5 bid and losartan 50 daily, eliquis 5 bid once awake. #CVA-recent stroke as per the CT scan, there is no need for intervention with thrombolytic therapy. Will continue with aspirin 81 mg daily and Plavix 75 mg daily once AMS resolves. Will cover with subcutaneous Lovenox 40 mg daily for now. #Bilateral upper lobe pneumonia- Will continue with IV vancomycin and Zosyn for now #Acute renal failure- Likely secondary to rhabdomyolysis and dehydration Continue IV fluids normal saline at 100 mm/h #Rhabdomyolysis- UA 3+ blood, that is likely myoglobin. There are no signs for UTI. Continue IV fluids, monitor CK in a.m. #Elevated BNP-in view of hypotension and sepsis, and absence of fluid overload ,there is no need for dialysis at this time. #DVT prophylaxis with subcutaneous Lovenox 40 mg daily #GI prophylaxis with IV Pepcid 20 mg twice daily #He is n.p.o. for now #CODE STATUS cannot be determined due to absence of family and his altered mental status. Will consider him full code for now Tenderness to palpation of the left shoulder and restricted range of movements, he was found lying on the floor, hence will get x-ray left shoulder to rule out fracture/dislocation. X-ray to be done at bedside. Attestations 2 Medical Necessity Statement*: He needs continued hospitalization more than 2 midnights for treatment of altered mental status pneumonia rhabdomyolysis acute renal failure with IV fluids and antibiotics. Time Spent in Patient Care: 20minutes Coding Level of Care Code Acute Code for [facility] Fwd Diagnoses AMS (altered mental status) R41.82 Rhabdomyolysis M62.82 Atrial fibrillation with RVR I48.91 Pneumonia J18.9 CVA (cerebral vascular accident) I63.9 Peripheral artery disease I73.9 BPH NOS w ur obs/LUTS N40.1 Chronic obstructive pulmonary disease, unspecified J44.9 Time Spent (min) 20
--- NOTE | 2023-07-19 17:05 | XRR_ITS ---
PROCEDURE INFORMATION: Exam: XR Left Shoulder Exam date and time: 07/19/2023 7:06 PM Age: 83 years old Clinical indication: Left; Patient HX: Lt shoulder pain w/ limited rom; Ulcerative wound superior to lt acromian TECHNIQUE: Imaging protocol: Radiologic exam of the left shoulder. Views: 1 view. COMPARISON: CR XR chest 1V portable [id number] 07/18/2023 11:44 AM FINDINGS: Bones/joints: Normal. Soft tissues: Normal. XR/XR shoulder LT 1V [id number] IMPRESSION: No acute findings.
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
[2023-07-20] VITALS (28 sets, daily range): BP systolic 109–148; BP diastolic 64–110; PULSE 75–112; RESP 16–28; TEMP 36.1–36.6; O2SAT 78–100
[2023-07-20] MEDS: famotidine 20 mg/2 mL INJ IVP ×2 (03:27→18:33)
[2023-07-20 05:26] LABS: Hematocrit 34.2 % (37-53); Lymphocytes # 0.6 10^3/uL (0.8-4.8); Lymphocytes % 7.1 %; Mean Corpuscular HGB Conc 30.4 g/dL (30-55); Mean Corpuscular Hemoglobin 26.5 pg (27-33); Mean Platelet Volume 10.9 fL (7.4-10.4); Monocytes # 0.5 10^3/uL (0.2-0.9); Monocytes % 6.1 %; Neutrophils # 7.33 10^3/uL (1.8-7.7); Neutrophils % 86.4 %; Nucleated Red Blood Cells % 0 %; Platelet Count 141 10^3/cmm (157-399); Red Blood Count 3.93 10^6/uL (3.85-5.65); Red Cell Distribution Width 16.2 % (12.1-15.1); White Blood Count 8.48 10^3/uL (3.29-11.43)
[2023-07-20 05:36] LABS: INR 1.21 (0.8-1.2)
[2023-07-20 06:00] LABS: Alanine Aminotransferase 47 U/L (0-41); Alkaline Phosphatase 72 U/L (40-130); Anion Gap 16.4 (5-19); Aspartate Amino Transferase 74 U/L (0-40); Blood Urea Nitrogen 53 mg/dL (8-23); Calcium 8.4 mg/dL (8.5-10.5); Carbon Dioxide 19 mmol/L (22-29); Chloride 115 mmol/L (98-107); Globulin 2.9 g/dL (1.3-4.6); Glucose 113 mg/dL (65-115); Magnesium 2.3 mg/dL (1.7-2.3); Osmolality Calculated 317 mOsm/kg (285-295); Potassium 4.4 mmol/L (3.5-5.1); Sodium 146 mmol/L (136-145); Total Bilirubin 0.8 mg/dL (0.15-1.2); Total Protein 5.9 g/dL (6.6-8.7)
[2023-07-20 06:10] LABS: Creatine Phosphokinase 1997 U/L (39-308)
[2023-07-20] MEDS: piperacillin-tazobactam 3.375 GM in sodium chloride 0.9% (plus) 50 ML IV ×2 (06:19→18:32)
--- NOTE | 2023-07-20 08:30 | PC.NURSE ---
Transferred patient to [facility]. Report given to Rashel BARAHONA. No belongings to go with patient.
--- NOTE | 2023-07-20 10:20 | PC.OT ---
Occupational therapy treatment attempted. Patient was non-responsive and unable to follow commands. No significant findings in x-ray of left shoulder noted. Continue as per plan.
--- NOTE | 2023-07-20 12:27 | P.PN_ITS ---
Subjective 2 Subjective: No acute overnight events noted. Seen him at bedside this morning. He was more awake, minimally comprehensive and answering questions appropriately. As per PT he was able to stand for 4 minutes at bedside, and was also able to sit at the edge of the bed. He had some friends visiting this morning who informed that they did not know him for years. He does not have contacts and has only 1 sister who has not been in contact with him. Explained to them about the current medical condition and plan of care. They express that he better be placed in a [facility] [place] facility for further care. Advised him to speak with the social services analyst in the morning. Medications: Reviewed: Yes Vitals/I&O/Wt Last Vital Signs Temp 97.0 F L 07/20/23 08:00 Pulse 102 H 07/20/23 11:23 Resp 17 07/20/23 11:23 BP 129/81 07/20/23 11:23 Pulse Ox 92 07/20/23 11:23 O2 Del Method Room Air 07/20/23 11:23 O2 Flow Rate 2 07/20/23 08:00 07/19/23 07/20/23 07/20/23 22:59 06:59 14:59 Intake Total 1500 / 2750 50 / 2800 Output Total 575 / 575 450 / 1025 75 / 75 Balance 925 / 2175 -400 / 1775 -75 / -75 Weight last 48 hrs Weight 73.028 kg Weight 74.899 kg Weight 76.204 kg Physical Exam 2 Narrative: He is lethargic, but opening eyes on verbal stimuli, minimally comprehensible but answering questions appropriately. Chest air entry equal on both sides, minimal decreased air entry in right upper lobe Cardiovascular normal heart sounds rate and rhythm irregular Abdominal soft nondistended normal bowel sounds Extremities no edema noted bilateral lower extremity. He has stage I decubitus in left upper shoulder and left lower extremity. Urinary Catheter Management: Coude: Cath Placed During This Visit: yes Reason for Continuing Indwelling Catheter: Accurate Measurement of Urinary Output in Critically Ill Patients Urinary Catheter Date of Insertion: 07/18/23 Urinary Catheter Time of Insertion: 23:00 Data 07/20/23 05:00 07/20/23 05:00 Micro: Microbiology 07/18/23 12:24 Blood Culture - Preliminary Blood NEGATIVE TO DATE 07/18/23 13:01 Blood Culture - Preliminary Blood Staphylococcus epidermidis A&P Assessment and plan (1) AMS (altered mental status): (2) Rhabdomyolysis: (3) Atrial fibrillation with RVR: (4) Pneumonia: (5) CVA (cerebral vascular accident): (6) Peripheral artery disease: (7) BPH NOS w ur obs/LUTS: (8) Chronic obstructive pulmonary disease, unspecified: Plan Alphonse Lao is a 83 year old male with past medical history of COPD, atrial fibrillation on eliquis, peripheral arterial disease, urethral strictures, BPH, HFrEF 15% now improved to 55% on recent ECHO , acute limb ischemia s/p femoral endarterectomy and thrombectomy, s/p RCA with GURPREET x2, hematuria was BIB EMS fo AMS, and atrial fibrillation with RVR in 140s. As per the ER physician he was noticed by his neighbors lying on the floor for unknown number of days. His 1 month ago and he has been living alone in unknown conditions. On arrival to ER he was found to have stroke on CT head and was hypotensive The chest and abdomen showed bilaterally upper lobe pneumonia, no PE and extensive peripheral arterial disease with mural thrombus. WBC count of 10 , INR 1.2 , acute renal failure with creatinine of 2.0 , baseline creatinine is 1.3 , CK 4300 and BNP 56,000 and lactic 3.5 He was in A-fib with RVR he was started on IV amiodarone drip He received 2 L normal saline bolus in the ER. #AMS likely secondary to recent stroke/ pneumonia and dehydration. resolving #Atrial fibrillation with RVR- Will start home medications now. metoprolol 12.5 bid and losartan 50 daily, eliquis 5 bid #CVA-recent stroke as per the CT scan, there is no need for intervention with thrombolytic therapy. Will continue with aspirin 81 mg daily and Plavix 75 mg daily #Bilateral upper lobe pneumonia- Will continue with IV vancomycin and Zosyn for now follow up final blood cultures #Acute renal failure-resolving Likely secondary to rhabdomyolysis and dehydration Continue IV fluids normal saline at 100 mm/h #Rhabdomyolysis-resolving UA 3+ blood, that is likely myoglobin. There are no signs for UTI. Continue IV fluids, monitor CK in a.m. #Elevated BNP- trending down, in view of hypotension and sepsis, and absence of fluid overload ,there is no need for dialysis at this time. #Anemia-stable given h/o hematuria in the past #DVT prophylaxis , continue eliquis. #GI prophylaxis with IV Pepcid 20 mg twice daily #npo for now except meds #CODE STATUS cannot be determined due to absence of family and his altered mental status. Will consider him full code for now Left shoulder xray done showed no acute fracture. Discharge plan-plan to discharge to subacute nursing facility once medically stable housekeeper/custodian/laundry worker aware of the patient Attestations 2 Medical Necessity Statement*: He needs continued hospitalization more than 2 midnights for treatment of altered mental status pneumonia rhabdomyolysis acute renal failure with IV fluids and antibiotics. Time Spent in Patient Care: 20minutes Coding Level of Care Code Acute Code for [facility] Fw Diagnoses AMS (altered mental status) R41.82 Rhabdomyolysis M62.82 Atrial fibrillation with RVR I48.91 Pneumonia J18.9 CVA (cerebral vascular accident) I63.9 Peripheral artery disease I73.9 BPH NOS w ur obs/LUTS N40.1 Chronic obstructive pulmonary disease, unspecified J44.9 Time Spent (min) 20
[2023-07-20] MEDS: neomycin-poly-bacitracin oint 28 gm 1 APPLIC TOPICAL ×2 (13:12→18:31)
[2023-07-20] MEDS: vancomycin 1,000 MG in sodium chloride 0.9% 250 ML 166 MG IV (13:12)
[2023-07-20] MEDS: sodium chloride 0.9% 1,000 ML 100 ML IV ×2 (18:31→20:43)
[2023-07-20] MEDS: metoprolol tartrate 25 mg Tablet 12.5 MG PO (18:33)
[2023-07-20] MEDS: apixaban 5 mg Tablet PO (18:33)
--- NOTE | 2023-07-20 22:06 | PC.NURSE ---
amioadrone still hanging. physician okay with running til am doc assesses pt.
[2023-07-21] VITALS (17 sets, daily range): BP systolic 101–160; BP diastolic 77–124; PULSE 97–111; RESP 15–26; TEMP 36–36.6; O2SAT 76–100
[2023-07-21] MEDS: piperacillin-tazobactam 3.375 GM in sodium chloride 0.9% (plus) 50 ML IV ×4 (00:05→23:25)
[2023-07-21] MEDS: famotidine 20 mg/2 mL INJ IVP ×2 (03:50→15:58)
[2023-07-21 04:23] LABS: Eosinophils % 0.1 %; Hematocrit 33.1 % (37-53); Lymphocytes # 0.6 10^3/uL (0.8-4.8); Lymphocytes % 8.6 %; Mean Corpuscular HGB Conc 30.2 g/dL (30-55); Mean Platelet Volume 10.9 fL (7.4-10.4); Monocytes # 0.6 10^3/uL (0.2-0.9); Monocytes % 7.4 %; Neutrophils # 6.19 10^3/uL (1.8-7.7); Neutrophils % 83.6 %; Nucleated Red Blood Cells % 0.4 %; Platelet Count 132 10^3/cmm (157-399); Red Blood Count 3.85 10^6/uL (3.85-5.65); Red Cell Distribution Width 16.5 % (12.1-15.1); White Blood Count 7.41 10^3/uL (3.29-11.43)
[2023-07-21 04:33] LABS: INR 1.21 (0.8-1.2)
[2023-07-21 04:46] LABS: Alanine Aminotransferase 53 U/L (0-41); Albumin Level 3.2 g/dL (3.5-5.2); Alkaline Phosphatase 67 U/L (40-130); Aspartate Amino Transferase 62 U/L (0-40); Blood Urea Nitrogen 62 mg/dL (8-23); Calcium 8.3 mg/dL (8.5-10.5); Carbon Dioxide 17 mmol/L (22-29); Chloride 121 mmol/L (98-107); Creatinine Clr Calc Pharmacy 29.4666; Globulin 2.4 g/dL (1.3-4.6); Glucose 120 mg/dL (65-115); Magnesium 2.4 mg/dL (1.7-2.3); Osmolality Calculated 335 mOsm/kg (285-295); Sodium 153 mmol/L (136-145); Total Bilirubin 0.9 mg/dL (0.15-1.2); Total Protein 5.6 g/dL (6.6-8.7)
[2023-07-21 04:48] LABS: Anion Gap 19.8 (5-19); Creatine Phosphokinase 1299 U/L (39-308); Potassium 4.8 mmol/L (3.5-5.1)
[2023-07-21] MEDS: sodium chloride 0.9% 1,000 ML 100 ML IV (06:47)
[2023-07-21 08:06] LABS: Thyroid Stimulating Hormone 2.48 uIU/mL (0.27-4.20)
[2023-07-21] MEDS: dextrose 5% 1,000 ML 75 ML IV (08:12)
--- NOTE | 2023-07-21 09:07 | P.PN_ITS ---
Documented by User: ESTHER Delgado STDSOFIA 07/21/23 13:25 Subjective 2 Subjective: Mr. Lao was seen this morning, conversing minimally, but looking at and tracking provider, able to follow commands such as squeezing fingers and moving extremities. Patient was unable to answer questions of orientation, and was somnolent/stuporous throughout the interview. Nursing raised concerns for patient being unable to adequately swallow his pills, and reports pill fragments remaining in his mouth. Medications: Reviewed: Yes Vitals/I&O/Wt Last Vital Signs Temp 97.8 F 07/21/23 03:58 Pulse 111 H 07/21/23 08:00 Resp 26 H 07/21/23 08:00 BP 101/77 07/21/23 08:00 Pulse Ox 85 L 07/21/23 08:00 O2 Del Method Nasal Cannula 07/21/23 03:58 O2 Flow Rate 2 07/20/23 08:00 07/20/23 07/21/23 07/21/23 22:59 06:59 14:59 Intake Total 510 / 2010 1050 / 3060 300 / 300 Output Total 350 / 500 350 / 850 Balance 160 / 1510 700 / 2210 300 / 300 Weight last 48 hrs Weight 179 lb Weight 161 lb Physical Exam 2 Narrative: General: Patient lying in bed, in a stuporous/somnolent state, was tracking provider, but was unable to converse appropriately. Patient unable to answer questions of orientation. HEENT: Head normocephalic, atraumatic to visual inspection, PERRL, oral mucosa dry, neck supple no thyromegaly noted. CV: Irregular rate, irregular rhythm, normal S1 and S2, no murmurs rubs or gallops noted. Pulm: Right upper and lower lobe mildly diminished to auscultation. Left upper lobe normal to auscultation, left lower lobe mildly diminished to auscultation. GI: Abdomen soft, nontender, bowel sounds intact all quadrants. : Ibanez in place?clear yellow urine in collection bag. Extremities: Right upper extremity normal to inspection, patient able to move extremity on command, chemical laboratory tester strength reduced: 3/5. Left upper extremity: Erythema, mild swelling noted, patient able to move extremity on command, chemical laboratory tester strength reduced: 3/5. Bilateral lower extremities normal, no edema, strength 4/5. Skin: Stage I decubitus left upper shoulder, and on left lower extremity. Urinary Catheter Management: Coude: Cath Placed During This Visit: yes Reason for Continuing Indwelling Catheter: Accurate Measurement of Urinary Output in Critically Ill Patients Urinary Catheter Date of Insertion: 07/18/23 Urinary Catheter Time of Insertion: 23:00 Data 07/21/23 03:33 07/21/23 03:33 Other Labs: Blood culture: Positive for Staphylococcus epidermidis Head CT: Findings consistent with recent right sided infarct. Anion Gap: 19.8 Serum osmolality: 335 Calcium: 8.3 Magnesium: 2.4 AST: 62 ALT: 53 CK: 1299, reduced from 1996 BNP: 29,612 Total protein: 5.6 Albumin: 3.2 UA: Protein +1, blood +3, otherwise unremarkable EKG: Reviewed personally, shows irregularly irregular rhythm, no discernible P waves?suggestive of A-fib with RVR. EKG shows a rate of 107. T wave depressions noted in precordial leads. Micro: Microbiology 07/18/23 12:24 Blood Culture - Preliminary Blood NEGATIVE TO DATE 07/18/23 13:01 Blood Culture - Preliminary Blood Staphylococcus epidermidis A&P Assessment and plan (1) AMS (altered mental status): Patient was found down at home, for an unknown number of days. CT scan in the ER shows nonhemorrhagic stroke, hypotension, A-fib with RVR, and rhabdomyolysis. Thrombolytic therapy was not initiated due to patient being outside of treatment window. Chest x-ray in the ER shows possible pneumonia in the left upper lobe. Patient continues to be in stuporous state today, with possible dysphagia, as nursing reports patient was unable to adequately take his p.o. medication, and found pill remains in his mouth. Altered mental status most likely related to recent stroke, and possible pneumonia and dehydration. Consulted PT/OT?working with patient. Consult speech therapy. Consult neurology?altered mental status. (2) Rhabdomyolysis: Patient was found down at home for unknown number of days. Admitting CK, 4318, improving 1299 today. Continue IV fluids Continue Ibanez catheter. (3) Atrial fibrillation with RVR: Patient is known to have A-fib with RVR in the ED. EKG shows A-fib with RVR, patient has continued elevated pulse greater than 100. Continue amiodarone drip. Attempt to change patient over to p.o. metoprolol 12.5 mg, twice daily Continue Eliquis 5 mg twice daily. Continue clopidogrel 75 mg p.o. daily. (4) Pneumonia: X-ray and chest CT showed possible developing pneumonia, supported by decreased breath sounds on auscultation. Continue Zosyn Continue vancomycin Blood cultures positive for Staph epidermidis in 1/3 bottles - possible contamination. (5) CVA (cerebral vascular accident): Patient was found down at home, for an unknown number of days. CT scan in the ER shows nonhemorrhagic stroke, hypotension, A-fib with RVR, and rhabdomyolysis. Thrombolytic therapy was not initiated due to patient being outside of treatment window. Continue to Plavix 75 mg p.o. daily. Continue 1 mg aspirin daily. (6) Chronic obstructive pulmonary disease, unspecified: Patient has previous history of COPD, currently alternating between room air and nasal cannula as needed. Titrate oxygen therapy as needed, maintain oxygen saturation greater than 94%. (7) Hypernatremia: (8) Acute encephalopathy: Plan DVT prophylaxis , continue eliquis. GI prophylaxis with IV Pepcid 20 mg twice daily N.p.o. for now except meds #CODE STATUS cannot be determined due to absence of family and his altered mental status. Will consider him full code for now Coding Level of Care Code 23689 Diagnoses AMS (altered mental status) R41.82 Rhabdomyolysis M62.82 Atrial fibrillation with RVR I48.91 Pneumonia J18.9 CVA (cerebral vascular accident) I63.9 Chronic obstructive pulmonary disease, unspecified J44.9 Hypernatremia E87.0 Acute encephalopathy G93.40 Time Spent (min) 36 Documented by User: Nicolas Martinez MD 07/21/23 13:26 Physical Exam 2 Urinary Catheter Management: Coude: Cath Placed During This Visit: yes Data 07/21/23 03:33 07/21/23 03:33 A&P Assessment and plan (1) AMS (altered mental status): Patient was found down at home, for an unknown number of days. CT scan in the ER shows nonhemorrhagic stroke, hypotension, A-fib with RVR, and rhabdomyolysis. Thrombolytic therapy was not initiated due to patient being outside of treatment window. Chest x-ray in the ER shows possible pneumonia in the left upper lobe. Patient continues to be in stuporous state today, with possible dysphagia, as nursing reports patient was unable to adequately take his p.o. medication, and found pill remains in his mouth. Altered mental status most likely related to recent stroke, and possible pneumonia and dehydration. Consulted PT/OT?working with patient. Consult speech therapy. (2) Rhabdomyolysis: Patient was found down at home for unknown number of days. Admitting CK, 4318, improving 1299 today. Continue IV fluids cautiously Continue Ibanez catheter. (3) Atrial fibrillation with RVR: Patient is known to have A-fib with RVR in the ED. EKG shows A-fib with RVR, patient has continued elevated pulse greater than 100. Continue amiodarone drip. government services professional to amiodarone p.o. when patient is able to swallow Currently on metoprolol 12.5 mg twice daily but he is having some swallowing difficulties. Continue his Eliquis 5 mg twice daily (4) Pneumonia: (5) CVA (cerebral vascular accident): Patient was found down at home, for an unknown number of days. CT scan in the ER shows nonhemorrhagic stroke, hypotension, A-fib with RVR, and rhabdomyolysis. Thrombolytic therapy was not initiated due to patient being outside of treatment window. Continue statin, Plavix, Eliquis. Not giving aspirin as this could increase risk of hemorrhage significantly (6) Chronic obstructive pulmonary disease, unspecified: (7) Hypernatremia: Patient significantly hyponatremic Discontinue normal saline Placed on D5W Recheck sodium at 1600. (8) Acute encephalopathy: Likely secondary to the patient's CVA. Monitor for improvement. Plan Multiple other medical present as outlined by past medical history Eliquis will suffice for DVT prophylaxis Pepcid for GI prophylaxis Currently full code Attestations 2 Medical Necessity Statement*: Needs continued hospitalization for continued evaluation of CVA, work with physical therapy, treatment of A-fib with RVR with amiodarone, and this patient who has continued encephalopathy. Diagnoses AMS (altered mental status) R41.82 Rhabdomyolysis M62.82 Atrial fibrillation with RVR I48.91 Pneumonia J18.9 CVA (cerebral vascular accident) I63.9 Chronic obstructive pulmonary disease, unspecified J44.9 Hypernatremia E87.0 Acute encephalopathy G93.40 Time Spent (min) 36
--- NOTE | 2023-07-21 09:51 | PC.CHAP ---
Pastoral Care Encounter/Spiritual Assessment Type of Contact [] Declined oysterman visit [] Patient/Family/Request visit [] Outpatient visit [] Follow-up visit [] Physician referral [] Code/Alert [x] Routine visit [] Staff referral [] Actively dying [x] Patient sleeping [] Family support [] [] Out of room [] Palliative care [] [] Receiving care in room [] Pre-surgical visit [] Trauma [] Long length of stay [] ICU visit [] Other: Relational/Emotional Strength [] Patient feels connected with others/family/visitors/staff [] Distress [] Loneliness/isolation [] Abandonment Spirituality of Patient [] Person of Dede [] Attends Congregational of their Ddee [] Believes in Prayer [] Reads Bible or Buddhist materials [] There are Spiritual issues to be addressed Architectural Intern Interventions [x] Prayer [] Active listening [] Non-anxious presence [] Spiritual/emotional support [] Crisis/trauma care [] Spiritual counseling [] Bereavement support [] Provided bereavement packet [x] Provided Bible/devotional materials [] Provided toy/stuffed animal, coloring book to patient or family member [] Provided Communion [] Anointing/[place] [] Salvation [] Completed spiritual assessment [] Other: Impact on Illness or Injury [] Angry [] Fearful [] Anxious [] Often cries [] Exhaustion [] Unable to work [] Unable to attend jew [] Unable to walk/stand [] Unable to read [] Unable to drive [] Unable to eat/drink [] Unable to sleep [] Unable to be with family [] Patient intubated [] Other: Summary Time spent with patient
[2023-07-21 11:32] LABS: Vancomycin Trough 16.1 ug/mL (10-15)
[2023-07-21] MEDS: vancomycin 1,000 MG in sodium chloride 0.9% 250 ML 250 MG IV (12:56)
--- NOTE | 2023-07-21 15:15 | PC.SOCIAL ---
Pg 2 IMM Explained to pt's friend, Eliot Pg 2 IMM. No questions voiced. Provided pt a copy. Initialed, dated, & timed a copy & placed in chart.
[2023-07-21] MEDS: neomycin-poly-bacitracin oint 28 gm 1 APPLIC TOPICAL ×2 (15:58→18:55)
--- NOTE | 2023-07-21 19:57 | PC.NURSE ---
shift report pt has been lethargic,stuporous, able to open eyes and follow commands. had coughing spells when oral care provided with a wet sponge. npo status per ST. Oral meds not given due to high risk of aspiration. Wound care assessment and dressings changed. Med student Benjamin made aware of these. Scd's on legs are functioning.
[2023-07-21 22:06] LABS: Blood Urea Nitrogen 78 mg/dL (8-23); Calcium 8.4 mg/dL (8.5-10.5); Carbon Dioxide 18 mmol/L (22-29); Chloride 117 mmol/L (98-107); Creatinine Clr Calc Pharmacy 22.7679; Glucose 154 mg/dL (65-115); Osmolality Calculated 332 mOsm/kg (285-295); Sodium 148 mmol/L (136-145)
[2023-07-22] VITALS (15 sets, daily range): BP systolic 94–158; BP diastolic 63–103; PULSE 92–113; RESP 17–25; TEMP 35.6–36.9; O2SAT 88–100; BMI 24.3
[2023-07-22] MEDS: dextrose 5% 1,000 ML 75 ML IV (01:35)
[2023-07-22] MEDS: famotidine 20 mg/2 mL INJ IVP ×2 (03:18→15:35)
[2023-07-22 05:29] LABS: Basophils % 0.1 %; Eosinophils % 0.3 %; Hematocrit 36.6 % (37-53); Lymphocytes # 0.7 10^3/uL (0.8-4.8); Lymphocytes % 8.9 %; Mean Corpuscular HGB Conc 29.5 g/dL (30-55); Mean Corpuscular Hemoglobin 26.1 pg (27-33); Mean Corpuscular Volume 88.4 fl (82-101); Monocytes # 0.7 10^3/uL (0.2-0.9); Monocytes % 9.5 %; Neutrophils % 80.7 %; Nucleated Red Blood Cells # 0.1 /100WBC; Nucleated Red Blood Cells % 1.3 %; Platelet Count 131 10^3/cmm (157-399); Red Blood Count 4.14 10^6/uL (3.85-5.65); Red Cell Distribution Width 16.5 % (12.1-15.1); White Blood Count 7.68 10^3/uL (3.29-11.43)
[2023-07-22 05:52] LABS: Alanine Aminotransferase 196 U/L (0-41); Albumin Level 3.2 g/dL (3.5-5.2); Alkaline Phosphatase 69 U/L (40-130); Anion Gap 18.5 (5-19); Aspartate Amino Transferase 158 U/L (0-40); Blood Urea Nitrogen 78 mg/dL (8-23); Calcium 8.5 mg/dL (8.5-10.5); Carbon Dioxide 19 mmol/L (22-29); Chloride 117 mmol/L (98-107); Creatinine Clr Calc Pharmacy 22.7679; Globulin 3.1 g/dL (1.3-4.6); Glucose 141 mg/dL (65-115); Osmolality Calculated 336 mOsm/kg (285-295); Potassium 4.5 mmol/L (3.5-5.1); Sodium 150 mmol/L (136-145); Total Bilirubin 1.1 mg/dL (0.15-1.2); Total Protein 6.3 g/dL (6.6-8.7)
[2023-07-22] MEDS: piperacillin-tazobactam 3.375 GM in sodium chloride 0.9% (plus) 50 ML IV ×2 (05:55→15:35)
[2023-07-22 06:02] LABS: Creatine Phosphokinase 557 U/L (39-308)
--- NOTE | 2023-07-22 08:54 | PM.PN ---
Documented by User: ESTHER Delgado STDSOFIA 07/22/23 09:05 Subjective Subjective: Mr. Lao was seen this morning, stuporous/somnolent, but looking at and tracking provider, able to follow commands such as squeezing fingers, opening eyes, and moving extremities. Patient was unable to answer questions of orientation, and was somnolent/stuporous throughout the interview. No acute events overnight. Medications: Reviewed: Yes Vitals/I&O/Wt Last Vital Signs Temp 97.5 F L 07/22/23 07:37 Pulse 102 H 07/22/23 08:16 Resp 18 07/22/23 08:16 BP 133/81 07/22/23 07:37 Pulse Ox 100 07/22/23 08:16 O2 Del Method Nasal Cannula 07/22/23 08:16 O2 Flow Rate 3 07/22/23 08:16 07/21/23 07/22/23 07/22/23 22:59 06:59 14:59 Intake Total 1250 / 1850 50 / 1900 200 / 200 Output Total 260 / 260 Balance 990 / 1590 50 / 1640 200 / 200 Weight last 48 hrs Weight 179 lb Weight 179 lb Physical Exam Narrative: General: Patient lying in bed, in a stuporous/somnolent state, was tracking provider, but was unable to converse appropriately. Patient unable to answer questions of orientation. HEENT: Head normocephalic, atraumatic to visual inspection, PERRL, oral mucosa dry, neck supple, no thyromegaly noted. CV: Irregular rate, irregular rhythm, normal S1 and S2, no murmurs rubs or gallops noted. Pulm: Expiratory wheezing heard in all lobes bilaterally, bilateral lower lobes diminished. GI: Abdomen soft, nontender, bowel sounds intact all quadrants. : Ibanez in place?clear yellow urine in collection bag. Extremities: Right upper extremity normal to inspection, patient able to move extremity on command, unit nurse strength reduced: 3/5. Left upper extremity: Erythema, mild swelling noted, patient able to move extremity on command, unit nurse strength reduced: 3/5. Bilateral lower extremities normal, no edema, strength 4/5. Skin: Stage I decubitus left upper shoulder, unstageable decubitus on left lateral lower extremity, unstageable decubitus on left hip superficial to the iliac crest. Urinary Catheter Management: Coude: Cath Placed During This Visit: yes Reason for Continuing Indwelling Catheter: Other Urinary Catheter Date of Insertion: 07/18/23 Urinary Catheter Time of Insertion: 23:00 Data 07/22/23 05:01 07/22/23 05:01 Other Labs: Blood culture: Positive for Staphylococcus epidermidis Head CT: Findings consistent with recent right sided infarct. Anion Gap: 19.8 Serum osmolality: 335 Calcium: 8.3 Magnesium: 2.4 AST: 62 ALT: 53 CK: 1299, reduced from 1996 BNP: 29,612 Total protein: 5.6 Albumin: 3.2 UA: Protein +1, blood +3, otherwise unremarkable EKG: Reviewed personally, shows irregularly irregular rhythm, no discernible P waves?suggestive of A-fib with RVR. EKG shows a rate of 107. T wave depressions noted in precordial leads. Micro: Microbiology 07/18/23 12:24 Blood Culture - Preliminary Blood NEGATIVE TO DATE 07/18/23 13:01 Blood Culture - Preliminary Blood Staphylococcus epidermidis A&P Assessment and plan (1) AMS (altered mental status): Patient was found down at home, for an unknown number of days. CT scan in the ER shows nonhemorrhagic stroke, hypotension, A-fib with RVR, and rhabdomyolysis. Thrombolytic therapy was not initiated due to patient being outside of treatment window. Chest x-ray in the ER shows possible pneumonia in the left upper lobe. Patient continues to be in stuporous state today, with possible dysphagia, as nursing reports patient was unable to adequately take his p.o. medication, and found pill remains in his mouth. Altered mental status most likely related to recent stroke, and possible pneumonia and dehydration. Consulted PT/OT?working with patient. Speech therapy has seen the patient, they recommend n.p.o., patient aspirated on clear liquid. (2) Rhabdomyolysis: Patient was found down at home for unknown number of days. Admitting CK, 4318, improving 557 today. Continue IV fluids cautiously Continue Ibanez catheter. (3) Atrial fibrillation with RVR: Patient is known to have A-fib with RVR in the ED. EKG shows A-fib with RVR, patient has continued elevated pulse greater than 100. Continue amiodarone drip. groover and striper operator to amiodarone p.o. when patient is able to swallow Metoprolol 12.5 mg twice daily Continue his Eliquis 5 mg twice daily AST and ALT were 158 and 196 respectively, possibly due to amiodarone. Consider Dobbhoff feeding tube to facilitate transferring patient over to p.o. medications. (4) Pneumonia: X-ray and chest CT showed possible developing pneumonia, supported by decreased breath sounds on auscultation. Continue Zosyn Continue vancomycin Blood cultures positive for Staph epidermidis in 1/3 bottles - possible contamination. (5) CVA (cerebral vascular accident): Patient was found down at home, for an unknown number of days. CT scan in the ER shows nonhemorrhagic stroke, hypotension, A-fib with RVR, and rhabdomyolysis. Thrombolytic therapy was not initiated due to patient being outside of treatment window. Continue statin, Plavix, Eliquis. Not giving aspirin as this could increase risk of hemorrhage significantly (6) Chronic obstructive pulmonary disease, unspecified: Patient has previous history of COPD, currently alternating between room air and nasal cannula as needed. Titrate oxygen therapy as needed, maintain oxygen saturation greater than 94%. (7) Hypernatremia: Patient significantly hyponatremic Sodium continues to trend up, 150 today. Normal saline has already been discontinued. Continue patient on D5W. (8) Acute encephalopathy: Likely secondary to the patient's CVA. Monitor for improvement. Plan Multiple other medical present as outlined by past medical history Patient unable to swallow, speech therapy has already seen patient, has determined patient was aspirating on clear liquids. Eliquis will suffice for DVT prophylaxis Pepcid for GI prophylaxis Currently full code Coding Level of Care Code 22990 Diagnoses AMS (altered mental status) R41.82 Rhabdomyolysis M62.82 Atrial fibrillation with RVR I48.91 Pneumonia J18.9 CVA (cerebral vascular accident) I63.9 Chronic obstructive pulmonary disease, unspecified J44.9 Hypernatremia E87.0 Acute encephalopathy G93.40 Documented by User: Lori Driver MD 07/22/23 11:14 Subjective Subjective: Mr. Lao was seen this morning, stuporous/somnolent, but looking at and tracking provider, able to follow commands such as squeezing fingers, opening eyes, and moving extremities. Patient was unable to answer questions of orientation, and was somnolent/stuporous throughout the interview. No acute events overnight. He appears confused. Follows some commands but unable to carry a conversation. Physical Exam Urinary Catheter Management: Coude: Cath Placed During This Visit: yes Data 07/22/23 05:01 07/22/23 05:01 A&P Assessment and plan (1) AMS (altered mental status): Patient was found down at home, for an unknown number of days. CT scan in the ER shows nonhemorrhagic stroke, hypotension, A-fib with RVR, and rhabdomyolysis. Thrombolytic therapy was not initiated due to patient being outside of treatment window. Chest x-ray in the ER shows possible pneumonia in the left upper lobe. Patient continues to be in stuporous state today, with possible dysphagia, as nursing reports patient was unable to adequately take his p.o. medication, and found pill remains in his mouth. Altered mental status most likely related to recent stroke, and possible pneumonia and dehydration. Consulted PT/OT?working with patient. Speech therapy has seen the patient, they recommend n.p.o., patient aspirated on clear liquid. Repeat head CT today (2) Rhabdomyolysis: (3) Atrial fibrillation with RVR: Patient is known to have A-fib with RVR in the ED. EKG shows A-fib with RVR, patient has continued elevated pulse greater than 100. Continue amiodarone drip. groover and striper operator to amiodarone p.o. when patient is able to swallow Metoprolol 12.5 mg twice daily Continue his Eliquis 5 mg twice daily AST and ALT were 158 and 196 respectively, possibly due to amiodarone. I will discontinue amiodarone and place on metoprolol 2.5 IV q4H PRN Recheck CMP in AM (4) Pneumonia: (5) CVA (cerebral vascular accident): Patient was found down at home, for an unknown number of days. CT scan in the ER shows nonhemorrhagic stroke, hypotension, A-fib with RVR, and rhabdomyolysis. Thrombolytic therapy was not initiated due to patient being outside of treatment window. Continue statin, Plavix, Eliquis. Not giving aspirin as this could increase risk of hemorrhage significantly Currently pt not getting any meds 2/2 to dysphagia which is most likely stroke related repeat head CT today (6) Chronic obstructive pulmonary disease, unspecified: (7) Hypernatremia: (8) Acute encephalopathy: Plan Multiple other medical present as outlined by past medical history Patient unable to swallow, speech therapy has already seen patient, has determined patient was aspirating on clear liquids. Continue NPO Eliquis will suffice for DVT prophylaxis Pepcid for GI prophylaxis Currently full code Plan for today 07/22/2023 -Patient's mentation has not improved significantly. He is confused and somewhat dysarthric. Able to follow commands however. Plan to repeat head CT today to look for evolving stroke versus hemorrhagic conversion or any other acute pathology? ? Patient unable to get any oral medications. ? We could consider Dobbhoff however secondary to patient's mentation I do not believe he will let us place at or keep it. ? Will discuss with family going forward he may be a candidate for PEG tube as patient is aspirating even on clear liquids. Will maintain strict n.p.o. status at this time. ? He did have bouts of hematuria which seem to be resolved by now. DVT prophylaxis was discontinued day before. ? Hemoglobin 10 range. Patient is on Eliquis at home for atrial fibrillation. ? With borderline low hemoglobin, recent hematuria, hematoma on head I would probably not do therapeutic Lovenox at this time. Patient may be able to restart oral Eliquis once oral diet is restarted. ? Will discuss with family regarding patient's wishes. If PEG is not an option then we may have to consider comfort measures status for the patient. ? Liver enzymes slightly elevated and rising. Possibly secondary to amiodarone. I will discontinue that at this time. Placed on metoprolol 2.5 IV every 4 hours as needed for heart rate greater than 110. -Discussed with RN, medical student, case management. Attestations Medical Necessity Statement*: Needs continued hospitalization for continued evaluation of CVA, work with physical therapy, treatment of A-fib with RVR with amiodarone, and this patient who has continued encephalopathy. Diagnoses AMS (altered mental status) R41.82 Rhabdomyolysis M62.82 Atrial fibrillation with RVR I48.91 Pneumonia J18.9 CVA (cerebral vascular accident) I63.9 Chronic obstructive pulmonary disease, unspecified J44.9 Hypernatremia E87.0 Acute encephalopathy G93.40
--- NOTE | 2023-07-22 10:00 | PC.CHAP ---
Pastoral Care Encounter/Spiritual Assessment Type of Contact [] Declined sales and distribution clerk visit [] Patient/Family/Request visit [] Outpatient visit [] Follow-up visit [] Physician referral [] Code/Alert [] Routine visit [] Staff referral [] Actively dying [X] Patient sleeping [] Family support [] [] Out of room [] Palliative care [] [] Receiving care in room [] Pre-surgical visit [] Trauma [] Long length of stay [] ICU visit [] Other: Relational/Emotional Strength [] Patient feels connected with others/family/visitors/staff [] Distress [] Loneliness/isolation [] Abandonment Spirituality of Patient [] Person of [place] [] Attends Baptism of their [place] [] Believes in Prayer [] Reads Bible or Mandaen materials [] There are Spiritual issues to be addressed Editorial Manager Interventions [] Prayer [] Active listening [] Non-anxious presence [] Spiritual/emotional support [] Crisis/trauma care [] Spiritual counseling [] Bereavement support [] Provided bereavement packet [] Provided Bible/devotional materials [] Provided toy/stuffed animal, coloring book to patient or family member [] Provided Communion [] Anointing/[place] [] Salvation [] Completed spiritual assessment [] Other: Impact on Illness or Injury [] Angry [] Fearful [] Anxious [] Often cries [] Exhaustion [] Unable to work [] Unable to attend samaritan [] Unable to walk/stand [] Unable to read [] Unable to drive [] Unable to eat/drink [] Unable to sleep [] Unable to be with family [] Patient intubated [] Other: Summary Time spent with patient
--- NOTE | 2023-07-22 10:37 | CT_ITS ---
WS: [id number] CT HEAD NONCONTRAST HISTORY: AMS, recent stroke TECHNIQUE: Contiguous axial imaging performed through the brain in 2.5 mm imaging. Bone and soft tiss ue windows. Sagittal and coronal reformats reviewed. All CT scans at [facility] use at least one of these dose optimization techniques: automated exposure control; mA and/or kV adjustment per pa tient size (includes targeted exams where dose is matched to clinical indication); or iterative recon struction. DLP: 1189.57 mGy.cm COMPARISON: 07/18/2023 Subacute infarct centered in the RIGHT basal ganglia. There is edema in the RIGHT caudate body and he ad and extending into the basal ganglia. Single focus of increased attenuation along the posterior as pect of the subacute infarct. This was not present on the prior study and could potentially represent a tiny petechial hemorrhage. No additional suspicious areas for blood products. Mild atrophy. Ventricles: Normal size with no hydrocephalus. No inferior displacement of the cerebellar tonsils. Paranasal sinuses: As visualized are clear. Mastoid air cells: Well pneumatized. Calvarium and scalp: Skull is intact with no soft tissue edema or swelling. Calcified plaque in the distal vertebral arteries and the intracranial carotid arteries. IMPRESSION: 1. Subacute evolving infarct centered in the RIGHT basal ganglia and caudate. 2. There is a single 4 mm focus of increased attenuation in the posterior infarct. This could potent ially represent a small petechial hemorrhage. This is seen on only one image.
[2023-07-22] MEDS: vancomycin 1,000 MG in sodium chloride 0.9% 250 ML 250 MG IV (12:45)
--- NOTE | 2023-07-22 13:04 | PC.NURSE ---
Provider gave parameters for the metoprolol IVP of HR over 100.
[2023-07-22] MEDS: metoprolol tartrate 1 mg/1 mL SDV 5 mL 2.5 MG IVP (13:13)
[2023-07-23] VITALS (16 sets, daily range): BP systolic 91–154; BP diastolic 64–106; PULSE 84–110; RESP 15–25; TEMP 36.2–37; O2SAT 92–100; BMI 24.3
[2023-07-23] MEDS: piperacillin-tazobactam 3.375 GM in sodium chloride 0.9% (plus) 50 ML IV ×2 (00:13→06:08)
[2023-07-23 03:43] LABS: Basophils % 0.1 %; Eosinophils # 0.1 10^3/uL (0.0-0.8); Eosinophils % 0.9 %; Hematocrit 35.4 % (37-53); Lymphocytes # 0.7 10^3/uL (0.8-4.8); Lymphocytes % 9.3 %; Mean Corpuscular HGB Conc 29.9 g/dL (30-55); Mean Corpuscular Volume 86.8 fl (82-101); Monocytes # 0.7 10^3/uL (0.2-0.9); Monocytes % 10.4 %; Neutrophils # 5.49 10^3/uL (1.8-7.7); Neutrophils % 78.4 %; Nucleated Red Blood Cells # 0.1 /100WBC; Nucleated Red Blood Cells % 1.3 %; Platelet Count 110 10^3/cmm (157-399); Red Blood Count 4.08 10^6/uL (3.85-5.65); Red Cell Distribution Width 16.2 % (12.1-15.1)
[2023-07-23] MEDS: famotidine 20 mg/2 mL INJ IVP ×2 (04:04→15:46)
[2023-07-23 04:09] LABS: Alanine Aminotransferase 219 U/L (0-41); Albumin Level 2.9 g/dL (3.5-5.2); Alkaline Phosphatase 70 U/L (40-130); Anion Gap 18.4 (5-19); Aspartate Amino Transferase 115 U/L (0-40); Calcium 8.3 mg/dL (8.5-10.5); Carbon Dioxide 17 mmol/L (22-29); Chloride 116 mmol/L (98-107); Creatinine Clr Calc Pharmacy 21.9548; Globulin 2.9 g/dL (1.3-4.6); Glucose 113 mg/dL (65-115); Osmolality Calculated 330 mOsm/kg (285-295); Potassium 4.4 mmol/L (3.5-5.1); Sodium 147 mmol/L (136-145); Total Bilirubin 1.2 mg/dL (0.15-1.2); Total Protein 5.8 g/dL (6.6-8.7)
[2023-07-23 04:19] LABS: Blood Urea Nitrogen 84 mg/dL (8-23)
[2023-07-23] MEDS: dextrose 5% 1,000 ML 100 ML IV ×2 (06:08→12:47)
--- NOTE | 2023-07-23 10:52 | PM.PN ---
Documented by User: ESTHER Delgado STDSOFIA 07/23/23 11:04 Subjective Subjective: Mr. Lao was seen this morning, continues to be stuporous/somnolent. He opens his eyes to verbal stimulation, looking at and tracking provider, able to follow commands such as squeezing fingers, opening eyes, and moving extremities. Patient was unable to answer questions of orientation, and was somnolent/stuporous throughout the interview. No acute events overnight. Patient given oral swab, and he immediately aspirated and started to cough. He appears confused. Follows some commands but unable to carry a conversation. Medications: Reviewed: Yes Vitals/I&O/Wt Last Vital Signs Temp 97.2 F L 07/23/23 07:30 Pulse 96 07/23/23 09:44 Resp 18 07/23/23 09:44 BP 151/91 07/23/23 07:30 Pulse Ox 97 07/23/23 09:44 O2 Del Method Nasal Cannula 07/23/23 09:44 O2 Flow Rate 3 07/23/23 09:44 07/22/23 07/23/23 07/23/23 22:59 06:59 14:59 Intake Total 50 / 1592.231 50 / 1642.231 Output Total 1075 / 1075 150 / 1225 500 / 500 Balance -1025 / 517.231 -100 / 417.231 -500 / -500 Weight last 48 hrs Weight 179 lb Weight 179 lb Physical Exam Narrative: General: Patient lying in bed, in a stuporous/somnolent state, was tracking provider, but was unable to converse appropriately. Patient unable to answer questions of orientation. HEENT: Head normocephalic, atraumatic to visual inspection, PERRL, oral mucosa dry, neck supple, no thyromegaly noted. CV: Irregular rate, irregular rhythm, normal S1 and S2, no murmurs rubs or gallops noted. Pulm: Expiratory wheezing heard in all lobes bilaterally, bilateral lower lobes diminished. Apparent gurgling sounds can also be heard without the use of stethoscope. GI: Abdomen soft, nontender, bowel sounds intact all quadrants. : Ibaenz in place?clear yellow urine in collection bag. Extremities: Right upper extremity normal to inspection, patient able to move extremity on command, direct marketing representative strength reduced: 3/5. Left upper extremity: Erythema, mild swelling noted, patient able to move extremity on command, direct marketing representative strength reduced: 3/5. Bilateral lower extremities normal, no edema, strength 4/5. Skin: Stage I decubitus left upper shoulder, unstageable decubitus on left lateral lower extremity, unstageable decubitus on left hip superficial to the iliac crest. Urinary Catheter Management: Coude: Cath Placed During This Visit: yes Reason for Continuing Indwelling Catheter: Accurate Measurement of Urinary Output in Critically Ill Patients Urinary Catheter Date of Insertion: 07/18/23 Urinary Catheter Time of Insertion: 23:00 Data 07/23/23 03:18 07/23/23 03:18 Other Labs: Blood culture: Positive for Staphylococcus epidermidis Head CT: Findings consistent with recent right sided infarct. Anion Gap: 19.8 Serum osmolality: 335 Calcium: 8.3 Magnesium: 2.4 AST: 115?trending down ALT: 219?trending up CK: 557 BNP: 29,612 Total protein: 5.6 Albumin: 3.2 UA: Protein +1, blood +3, otherwise unremarkable EKG: Reviewed personally, shows irregularly irregular rhythm, no discernible P waves?suggestive of A-fib with RVR. EKG shows a rate of 107. T wave depressions noted in precordial leads. Repeat head CT shows evolving subacute infarct in the right basal ganglia and caudate, there is a focus of attenuation representing small punctate hemorrhage. Micro: Microbiology 07/18/23 12:24 Blood Culture - Preliminary Blood Staphylococcus epidermidis Staphylococcus hominis 07/18/23 13:01 Blood Culture - Preliminary Blood Staphylococcus epidermidis Staphylococcus hominis A&P Assessment and plan (1) AMS (altered mental status): Patient was found down at home, for an unknown number of days. CT scan in the ER shows nonhemorrhagic stroke, hypotension, A-fib with RVR, and rhabdomyolysis. Thrombolytic therapy was not initiated due to patient being outside of treatment window. Chest x-ray in the ER shows possible pneumonia in the left upper lobe. Patient continues to be in stuporous state today, with possible dysphagia, as nursing reports patient was unable to adequately take his p.o. medication, and found pill remains in his mouth. Altered mental status most likely related to recent stroke, and possible pneumonia and dehydration. Consulted PT/OT?working with patient. Speech therapy has seen the patient, they recommend n.p.o., patient aspirated on clear liquid. Repeat head CT shows evolution of infarct in the basal ganglia and caudate, there is a small punctate hemorrhage. Patient continues to have altered mental status that does not seem to be improving. Patient had a oral swab today, and immediately aspirated on 1 to 2 mL of water. Spoke with family, they agree patient should be switched to DNR/DNI, and will be transferred to comfort care, pending transfer to hospice. (2) Rhabdomyolysis: Patient was found down at home for unknown number of days. Admitting CK, 4318, improving 557 today. Continue IV fluids cautiously Continue Ibanez catheter? Facilitate comfort care. (3) Atrial fibrillation with RVR: Patient is known to have A-fib with RVR in the ED. EKG shows A-fib with RVR, patient has continued elevated pulse greater than 100. Continue amiodarone drip. government program manager to amiodarone p.o. when patient is able to swallow Metoprolol 12.5 mg twice daily Continue his Eliquis 5 mg twice daily AST and ALT were 158 and 196 respectively, possibly due to amiodarone. I will discontinue amiodarone and place on metoprolol 2.5 IV q4H PRN Discontinue daily labs?comfort care. (4) Pneumonia: X-ray and chest CT showed possible developing pneumonia, supported by decreased breath sounds on auscultation. Continue Zosyn Continue vancomycin Blood cultures positive for Staph epidermidis in 1/3 bottles - possible contamination. Patient transferred to comfort care, discontinue antibiotics. (5) CVA (cerebral vascular accident): Patient was found down at home, for an unknown number of days. CT scan in the ER shows nonhemorrhagic stroke, hypotension, A-fib with RVR, and rhabdomyolysis. Thrombolytic therapy was not initiated due to patient being outside of treatment window. Currently pt not getting any meds 2/2 to dysphagia which is most likely stroke related Repeat head CT shows an evolution of the infarct in the basal ganglia, caudate nucleus, and small punctate hemorrhage. Discontinue Eliquis and Plavix. (6) Chronic obstructive pulmonary disease, unspecified: Patient has previous history of COPD, currently alternating between room air and nasal cannula as needed. Titrate oxygen therapy as needed, maintain oxygen saturation greater than 94%. (7) Hypernatremia: Patient significantly hyponatremic Sodium continues to trend up, 150 today. Normal saline has already been discontinued. Discontinue fluids?comfort care. (8) Acute encephalopathy: Likely secondary to the patient's CVA. Monitor for improvement. Plan Multiple other medical present as outlined by past medical history Patient unable to swallow, speech therapy has already seen patient, has determined patient was aspirating on clear liquids. Continue NPO. Oral swab administered today, for patient comfort, elicited immediate aspiration and coughing response. Discontinuing Eliquis due to punctate hemorrhage, patient now on comfort care. Pepcid for GI prophylaxis Patient transferred to DNR/DNI. Patient transferred to comfort care, pending transfer to hospice. Plan for today 07/22/2023 -Patient's mentation has not improved significantly. He is confused and somewhat dysarthric. Able to follow commands however. Plan to repeat head CT today to look for evolving stroke versus hemorrhagic conversion or any other acute pathology? ? Patient unable to get any oral medications. ? We could consider Dobbhoff however secondary to patient's mentation I do not believe he will let us place at or keep it. ? Will discuss with family going forward he may be a candidate for PEG tube as patient is aspirating even on clear liquids. Will maintain strict n.p.o. status at this time. ? He did have bouts of hematuria which seem to be resolved by now. DVT prophylaxis was discontinued day before. ? Hemoglobin 10 range. Patient is on Eliquis at home for atrial fibrillation. ? With borderline low hemoglobin, recent hematuria, hematoma on head I would probably not do therapeutic Lovenox at this time. Patient may be able to restart oral Eliquis once oral diet is restarted. ? Will discuss with family regarding patient's wishes. If PEG is not an option then we may have to consider comfort measures status for the patient. ? Liver enzymes slightly elevated and rising. Possibly secondary to amiodarone. I will discontinue that at this time. Placed on metoprolol 2.5 IV every 4 hours as needed for heart rate greater than 110. -Discussed with RN, medical student, case management. Coding Level of Care Code 08586 Diagnoses AMS (altered mental status) R41.82 Rhabdomyolysis M62.82 Atrial fibrillation with RVR I48.91 Pneumonia J18.9 CVA (cerebral vascular accident) I63.9 Chronic obstructive pulmonary disease, unspecified J44.9 Hypernatremia E87.0 Acute encephalopathy G93.40 Documented by User: Lori Driver MD 07/23/23 12:49 Subjective Subjective: Mr. Lao was seen this morning, continues to be stuporous/somnolent. He opens his eyes to verbal stimulation, looking at and tracking provider, able to follow commands such as squeezing fingers, opening eyes, and moving extremities. Patient was unable to answer questions of orientation, and was somnolent/stuporous throughout the interview. No acute events overnight. Patient given oral swab, and he immediately aspirated and started to cough. He appears confused. Follows some commands but unable to carry a conversation. Called patient's sister twice over the phone today. She states that she is the living sister at this time along with another sister who was not close to Alphonse. Her name is Norma. She says there were never close however she is aware of everything and since her blessings. Both sisters in agreement that patient should be transitioned over to comfort measures at this time. Ms. Michaels states that patient has been noncompliant to medications and she is not surprised that he had a stroke. She says that he went downhill after he lost his Cornelia who in her sleep. She says he found out that she had days later however he thought that she was just sleeping. Patient was found on the floor and brought to the hospital by a neighbor. She states that he would never want a feeding tube and would not want to live like this. She states that she is from the medical field herself and has a DNR in place for herself and understands the situation. She would like to pursue hospice care for the patient at this time and would like for me to start comfort measures. I have informed her that patient is a high risk for aspiration and has severe dysphagia and dysarthria. Most likely secondary to stroke there is also a tiny focus of punctate hemorrhage. Patient sister aware of patient's poor prognosis at this time. power lineworker working with [place] and [facility] for end-of-life care contract at this time. Patient sister is aware. Ms. Dutton says that she will try to get into town to see him. She also stated he should not give him any medication that will not benefit him at this time. I discussed with her regarding taking off antibiotics, IV fluids, blood thinners however I also informed her that due to severe dysphagia he is not getting those medications at this time. We will transition over to comfort measures at this time as per family wishes. Physical Exam Urinary Catheter Management: Coude: Cath Placed During This Visit: yes Data 07/23/23 03:18 07/23/23 03:18 A&P Assessment and plan (1) AMS (altered mental status): (2) Rhabdomyolysis: (3) Atrial fibrillation with RVR: (4) Pneumonia: (5) CVA (cerebral vascular accident): (6) Chronic obstructive pulmonary disease, unspecified: (7) Hypernatremia: (8) Acute encephalopathy: Plan Multiple other medical present as outlined by past medical history Patient unable to swallow, speech therapy has already seen patient, has determined patient was aspirating on clear liquids. Continue NPO. Oral swab administered today, for patient comfort, elicited immediate aspiration and coughing response. Discontinuing Eliquis due to punctate hemorrhage, patient now on comfort care. Pepcid for GI prophylaxis Patient transferred to DNR/DNI. Patient transferred to comfort care, pending transfer to hospice. Plan for today 07/22/2023 -Patient's mentation remains poor and there is not much improvement. CT head repeated yesterday does show a tiny focus of punctate hemorrhage. There is also edema with evolving stroke present. He is confused and follows a few simple commands however unable to speak or do much. Water swab was given to patient and immediately choked and aspirated. Attempt was aborted thereafter. He may not have anything by mouth and is currently NPO. ? Family states a feeding tube is not compatible with patient's wishes at this time. Called patient's sister twice over the phone today. She states that she is the living sister at this time along with another sister who was not close to Alphonse. Her name is Norma. She says there were never close however she is aware of everything and since her blessings. Both sisters in agreement that patient should be transitioned over to comfort measures at this time. Ms. Michaels states that patient has been noncompliant to medications and she is not surprised that he had a stroke. She says that he went downhill after he lost his Cornelia who in her sleep. She says he found out that she had days later however he thought that she was just sleeping. Patient was found on the floor and brought to the hospital by a neighbor. She states that he would never want a feeding tube and would not want to live like this. She states that she is from the medical field herself and has a DNR in place for herself and understands the situation. She would like to pursue hospice care for the patient at this time and would like for me to start comfort measures. I have informed her that patient is a high risk for aspiration and has severe dysphagia and dysarthria. Most likely secondary to stroke there is also a tiny focus of punctate hemorrhage. Patient sister aware of patient's poor prognosis at this time. power lineworker working with [employer] and [facility] for end-of-life care contract at this time. Patient sister is aware. Ms. Dutton says that she will try to get into town to see him. She also stated he should not give him any medication that will not benefit him at this time. I discussed with her regarding taking off antibiotics, IV fluids, blood thinners however I also informed her that due to severe dysphagia he is not getting those medications at this time. We will transition over to comfort measures at this time as per family wishes. CODE STATUS has been changed to reflect DNR/DNI. power lineworker Luke also talked with sister Marija who voiced the above to her as well. Medical student also witness to conversation above. -Will place patient on comfort care measures only status at this time. Attestations Medical Necessity Statement*: Comfort measures Diagnoses AMS (altered mental status) R41.82 Rhabdomyolysis M62.82 Atrial fibrillation with RVR I48.91 Pneumonia J18.9 CVA (cerebral vascular accident) I63.9 Chronic obstructive pulmonary disease, unspecified J44.9 Hypernatremia E87.0 Acute encephalopathy G93.40
--- NOTE | 2023-07-23 12:47 | PC.SOCIAL ---
IMM Updated Updated pt's sister via phone, on IMM. No questions voiced. Provided pt a copy. Initialed, dated, & timed copy in chart.
--- NOTE | 2023-07-23 15:32 | PC.OT ---
PATIENT REMOVED FROM OT [facility]ELOAD DUE TO TRANSITION TO COMFORT CARE
[2023-07-23] MEDS: morphine 4 mg/mL SDV 1 mL IVP (15:45)
[2023-07-23] MEDS: neomycin-poly-bacitracin oint 28 gm 1 APPLIC TOPICAL (16:06)
--- NOTE | 2023-07-23 18:03 | PC.NURSE ---
Patient is given a warm complete bed bath and skin care. New gown and linen change done. Wound care is done and dressing change.
--- NOTE | 2023-07-23 19:19 | PC.NURSE ---
Patient is currently comfort measures. Patient slightly restless at this time. No other distress observed. Will continue to monitor.
[2023-07-24] VITALS (12 sets, daily range): BP systolic 91–139; BP diastolic 70–78; PULSE 95–108; RESP 13–18; TEMP 36.8; O2SAT 89–98
[2023-07-24] MEDS: saliva stimulant spray 30 mL Btl 1 SPRAY MUCOUS MEM (04:00)
[2023-07-24] MEDS: blistex lip oint 7 gm Tube 1 APPLIC TOPICAL (04:00)
--- NOTE | 2023-07-24 07:05 | P.PN_ITS ---
Subjective 2 Subjective: seen this morning patient appears to be comfortable Vitals/I&O/Wt Last Vital Signs Temp 98.4 F 07/23/23 20:00 Pulse 95 07/24/23 00:00 Resp 13 07/24/23 00:00 BP 91/70 07/23/23 20:00 Pulse Ox 92 07/24/23 00:00 O2 Del Method Room Air 07/24/23 00:00 O2 Flow Rate 3 07/23/23 12:00 07/23/23 07/24/23 07/24/23 22:59 06:59 14:59 Intake Total 670 / 1385 Output Total 1200 / 1700 Balance 670 / 885 -1200 / -315 Weight last 48 hrs Weight 81.193 kg Physical Exam 2 Narrative: Limited exam due to comfort measures status General: Patient lying in bed, in a stuporous/somnolent state, appears comfortable, not very responsive. On room air HEENT: Head normocephalic, atraumatic to visual inspection, oral mucosa dry CV: Irregular rate, irregular rhythm, normal S1 and S2 Pulm: Expiratory wheezing heard in all lobes bilaterally, bilateral lower lobes diminished. Apparent gurgling sounds can also be heard without the use of stethoscope. GI: Abdomen soft, nontender, bowel sounds intact all quadrants.Does not grimace to palpation : Ibanez in place?clear yellow urine in collection bag. Neuro: Unable to assess, patient minimally responsive. Skin: Stage I decubitus left upper shoulder, unstageable decubitus on left lateral lower extremity, unstageable decubitus on left hip superficial to the iliac crest. Urinary Catheter Management: Coude: Cath Placed During This Visit: yes Reason for Continuing Indwelling Catheter: Hospice/Comfort/Palliative Care Urinary Catheter Date of Insertion: 07/18/23 Urinary Catheter Time of Insertion: 23:00 Data 07/23/23 03:18 07/23/23 03:18 Micro: Microbiology 07/18/23 12:24 Blood Culture - Final Blood Staphylococcus epidermidis Staphylococcus hominis 07/18/23 13:01 Blood Culture - Final Blood Staphylococcus epidermidis Staphylococcus hominis A&P Assessment and plan (1) AMS (altered mental status): Patient was found down at home, for an unknown number of days. CT scan in the ER shows nonhemorrhagic stroke, hypotension, A-fib with RVR, and rhabdomyolysis. Thrombolytic therapy was not initiated due to patient being outside of treatment window. Chest x-ray in the ER shows possible pneumonia in the left upper lobe. Patient continues to be in stuporous state today, with possible dysphagia, as nursing reports patient was unable to adequately take his p.o. medication, and found pill remains in his mouth. Altered mental status most likely related to recent stroke, and possible pneumonia and dehydration. Consulted PT/OT?working with patient. Speech therapy has seen the patient, they recommend n.p.o., patient aspirated on clear liquid. Repeat head CT shows evolution of infarct in the basal ganglia and caudate, there is a small punctate hemorrhage. Patient continues to have altered mental status that does not seem to be improving. Patient had a oral swab today, and immediately aspirated on 1 to 2 mL of water. Spoke with family, they agree patient should be switched to DNR/DNI, and will be transferred to comfort care, pending transfer to hospice. (2) Rhabdomyolysis: Patient was found down at home for unknown number of days. Admitting CK, 4318, improving 557 today. Continue IV fluids cautiously Continue Ibanze catheter? Facilitate comfort care. (3) Atrial fibrillation with RVR: Patient is known to have A-fib with RVR in the ED. EKG shows A-fib with RVR, patient has continued elevated pulse greater than 100. Continue amiodarone drip. disaster recovery analyst to amiodarone p.o. when patient is able to swallow Metoprolol 12.5 mg twice daily Continue his Eliquis 5 mg twice daily AST and ALT were 158 and 196 respectively, possibly due to amiodarone. I will discontinue amiodarone and place on metoprolol 2.5 IV q4H PRN Discontinue daily labs?comfort care. (4) Pneumonia: X-ray and chest CT showed possible developing pneumonia, supported by decreased breath sounds on auscultation. Continue Zosyn Continue vancomycin Blood cultures positive for Staph epidermidis in 1/3 bottles - possible contamination. Patient transferred to comfort care, discontinue antibiotics. (5) CVA (cerebral vascular accident): Patient was found down at home, for an unknown number of days. CT scan in the ER shows nonhemorrhagic stroke, hypotension, A-fib with RVR, and rhabdomyolysis. Thrombolytic therapy was not initiated due to patient being outside of treatment window. Currently pt not getting any meds 2/2 to dysphagia which is most likely stroke related Repeat head CT shows an evolution of the infarct in the basal ganglia, caudate nucleus, and small punctate hemorrhage. Discontinue Eliquis and Plavix. (6) Chronic obstructive pulmonary disease, unspecified: Patient has previous history of COPD, currently alternating between room air and nasal cannula as needed. Titrate oxygen therapy as needed, maintain oxygen saturation greater than 94%. (7) Hypernatremia: Patient significantly hyponatremic Sodium continues to trend up, 150 today. Normal saline has already been discontinued. Discontinue fluids?comfort care. (8) Acute encephalopathy: Likely secondary to the patient's CVA. Monitor for improvement. Plan Multiple other medical present as outlined by past medical history Patient unable to swallow, speech therapy has already seen patient, has determined patient was aspirating on clear liquids. Continue NPO. Oral swab administered today, for patient comfort, elicited immediate aspiration and coughing response. Discontinuing Eliquis due to punctate hemorrhage, patient now on comfort care. Pepcid for GI prophylaxis Patient transferred to DNR/DNI. Patient transferred to comfort care, pending transfer to hospice. Plan for today 07/22/2023 -Patient's mentation remains poor and there is not much improvement. CT head repeated yesterday does show a tiny focus of punctate hemorrhage. There is also edema with evolving stroke present. He is confused and follows a few simple commands however unable to speak or do much. Water swab was given to patient and immediately choked and aspirated. Attempt was aborted thereafter. He may not have anything by mouth and is currently NPO. ? Family states a feeding tube is not compatible with patient's wishes at this time. Called patient's sister twice over the phone today. She states that she is the living sister at this time along with another sister who was not close to Alphonse. Her name is Norma. She says there were never close however she is aware of everything and gives her blessings. Both sisters in agreement that patient should be transitioned over to comfort measures at this time. Ms. Dutton states that patient has been noncompliant to medications and she is not surprised that he had a stroke. She says that he went downhill after he lost his Cornelia who in her sleep. She says he found out that she had days later however he thought that she was just sleeping. Patient was found on the floor and brought to the hospital by a neighbor. She states that he would never want a feeding tube and would not want to live like this. She states that she is from the medical field herself and has a DNR in place for herself and understands the situation. She would like to pursue hospice care for the patient at this time and would like for me to start comfort measures. I have informed her that patient is a high risk for aspiration and has severe dysphagia and dysarthria. Most likely secondary to stroke there is also a tiny focus of punctate hemorrhage. Patient sister aware of patient's poor prognosis at this time. waterside worker working with [facility] and [facility] for end-of-life care contract at this time. Patient sister is aware. Ms. Dutton says that she will try to get into town to see him. She also stated he should not give him any medication that will not benefit him at this time. I discussed with her regarding taking off antibiotics, IV fluids, blood thinners however I also informed her that due to severe dysphagia he is not getting those medications at this time. We will transition over to comfort measures at this time as per family wishes. CODE STATUS has been changed to reflect DNR/DNI. waterside worker Luke also talked with sister Marija who voiced the above to her as well. Medical student also witness to conversation above. -Will place patient on comfort care measures only status at this time. 07/24/2023 - Continue comfort measures status - Awaiting insurance approval to be sent to [place] for end of life care. Attestations 2 Medical Necessity Statement*: Comfort measures Diagnoses AMS (altered mental status) R41.82 Rhabdomyolysis M62.82 Atrial fibrillation with RVR I48.91 Pneumonia J18.9 CVA (cerebral vascular accident) I63.9 Chronic obstructive pulmonary disease, unspecified J44.9 Hypernatremia E87.0 Acute encephalopathy G93.40
--- NOTE | 2023-07-24 12:06 | P.DS_ITS ---
Discharge Providers Date of Admission: 07/18/23 13:34 Date of Discharge: July 24, 2023 Attending Provider at Admission: Grisel Murphy MD Attending Provider at Discharge: Lori Driver MD Primary Care Provider: DARRYN Aldrich Diagnoses at Discharge Discharge Diagnosis (1) AMS (altered mental status): Status: Acute (2) Rhabdomyolysis: Status: Acute (3) Atrial fibrillation with RVR: Status: Acute (4) Pneumonia: Status: Acute (5) CVA (cerebral vascular accident): Status: Acute (6) Chronic obstructive pulmonary disease, unspecified: Status: Chronic (7) Hypernatremia: Status: Acute (8) Acute encephalopathy: Status: Acute Reason for Visit Reason for Visit: SOB Brief History: Alphonse Lao is a 83 year old male with past medical history of COPD, atrial fibrillation on eliquis, peripheral arterial disease, urethral strictures, BPH, HFrEF 15% now improved to 55% on recent ECHO , acute limb ischemia s/p femoral endarterectomy and thrombectomy, s/p RCA with GURPREET x2, hematuria was BIB EMS fo AMS, and atrial fibrillation with RVR in 140s. As per the ER physician he was noticed by his neighbors lying on the floor for unknown number of days. His w rosie 1 month ago and he has been living alone in unknown conditions. There is no family member listed in the system. On arrival to ER he was found to have stroke on CT head and hypotensive The chest and abdomen showed bilaterally upper lobe pneumonia, no PE and extensive peripheral arterial disease with mural thrombus. WBC count of 10 , INR 1.2 , acute renal failure with creatinine of 2.0 , baseline creatinine is 1.3 , CK 4300 and BNP 56,000 and lactic 3.5 He was in A-fib with RVR he was started on IV amiodarone drip He received 2 L normal saline bolus in the ER. Hospital Course Hospital Course Please see progress notes for further details Patient presented with A-fib with RVR and was found to have a stroke on initial ER visit and was hypotensive. CT abdomen also showed bilateral upper lobe pneumonia and extensive peripheral arterial disease. He also had altered mental status secondary to stroke pneumonia and dehydration. He was placed on amiodarone drip initially and had elevated liver enzymes. Patient out of window for thrombolytic therapy therefore that was not given. He was placed on aspirin Plavix. Patient unable to take any of the above medications due to severe dysphagia and dysarthria secondary to stroke. CT head was repeated which showed a tiny focus of punctate hemorrhage as well and edema with evolving stroke. Patient was kept n.p.o. due to extremely high aspiration risk. Patient unable to tolerate mouth swabs with water either and would aspirate on them. Actively gurgling sounds would be heard. There are 2 living sisters and one of them is closer to the patient. Updated them over the phone in detail. Secondary to severe aspiration risk and unable to swallow feeding tube was offered to patient's family who stated that that is not compatible with patient's wishes at this time. Ms. Marija Soria elected to transition patient over to hospice and change his CODE STATUS to DNR/DNI. Additionally of note patient was noncompliant to his medications prior to hospitalization. Please see progress notes for further details. At this point patient will be sent to [facility] living [facility]. Patient carries a poor prognosis. Physical Exam Narrative: Appears comfortable and not in pain. Dry oral mucosa Limited physical exam secondary to comfort measures status. Urinary Catheter Management: Coude: Cath Placed During This Visit: yes Reason for Continuing Indwelling Catheter: Hospice/Comfort/Palliative Care Urinary Catheter Date of Insertion: 07/18/23 Urinary Catheter Time of Insertion: 23:00 Discharge Data Studies Completed and Pending Completed Studies During Hospitalization Category Date Time Status CT angio chest w abd pel w con Stat Cat Scan 07/18/23 11:[address] cervical spin wo con* [id number] Stat Cat Scan 07/18/23 11:[address] head wo con* [id number] Stat Cat Scan 07/18/23 11:[address] head wo con* [id number] Urgent Cat Scan 07/22/23 10:37 Completed XR chest 1V portable [id number] Stat Exams 07/18/23 11:12 Completed XR shoulder LT 1V [id number] Urgent Exams 07/19/23 17:05 Completed Radiology Impressions Cervical Spine CT 07/18/23 11:12 IMPRESSION: 1. No acute abnormality in the cervical spine. 2. Bilateral upper lobe pulmonary infiltrates. Chest/Abdomen/Pelvis CT 07/18/23 11:12 IMPRESSION: 1. Consolidation in the anterior portions of both upper lobes. Lesser degree of consolidation right middle lobe. 2. No pulmonary arterial embolism seen. IMPRESSION: 1. 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 Substantial calcifications in stenosis bilateral iliac arteries, most prominently origin of left common iliac. 2. Prostatic hypertrophy with distended bladder. Question bladder outlet obstruction. COMMENTS: Consistent with the [employer]'s Incidental Findings Committee white paper (J Am Marlon Radiol 2018): Any incidental renal lesion less than 1 cm or classified as too small to characterize, or any incidental cystic renal lesion characterized as simple-appearing, is likely benign. No follow-up imaging is recommended for these lesions per consensus recommendations based on imaging criteria. Shoulder X-Ray 07/19/23 17:05 IMPRESSION: No acute findings. Laboratory Results WBC 7.00 10^3/uL (3.29-11.43) 07/23/23 03:18 RBC 4.08 10^6/uL (3.85-5.65) 07/23/23 03:18 Hgb 10.60 g/dL (11.27-16.99) L 07/23/23 03:18 Hct 35.4 % (37-53) L 07/23/23 03:18 MCV 86.8 fl (82-101) 07/23/23 03:18 MCH 26.0 pg (27-33) L 07/23/23 03:18 MCHC 29.9 g/dL (30-55) L 07/23/23 03:18 RDW 16.2 % (12.1-15.1) H 07/23/23 03:18 Plt Count 110 10^3/cmm (157-399) L 07/23/23 03:18 MPV 11.0 fL (7.4-10.4) H 07/23/23 03:18 Neut % (Auto) 78.4 % 07/23/23 03:18 Lymph % (Auto) 9.3 % 07/23/23 03:18 Baxter % (Auto) 10.4 % 07/23/23 03:18 Eos % (Auto) 0.9 % 07/23/23 03:18 Baso % (Auto) 0.1 % 07/23/23 03:18 Neut # (Auto) 5.49 10^3/uL (1.8-7.7) 07/23/23 03:18 Lymph # (Auto) 0.7 10^3/uL (0.8-4.8) L 07/23/23 03:18 Baxter # (Auto) 0.7 10^3/uL (0.2-0.9) 07/23/23 03:18 Eos # (Auto) 0.1 10^3/uL (0.0-0.8) 07/23/23 03:18 Baso # (Auto) 0.0 10^3/uL (0.0-0.1) 07/23/23 03:18 Nucleated RBC % (auto) 1.3 % 07/23/23 03:18 Nucleated RBCs # 0.1 /100WBC 07/23/23 03:18 PT 15.70 SECONDS (12.1-14.9) H 07/21/23 03:33 INR 1.21 (0.8-1.2) H 07/21/23 03:33 Specimen Type Arterial 07/18/23 11:35 Sample Site Radial, left 07/18/23 11:35 ABG pH 7.43 (7.35-7.45) 07/18/23 11:35 ABG pCO2 31.6 mmHg (35-45) L 07/18/23 11:35 ABG pO2 112.0 mmHg (80.0-100.0) H 07/18/23 11:35 ABG PO2/FiO2 Ratio 0 07/18/23 11:35 ABG HCO3 21.0 mmol/L (22-26) L 07/18/23 11:35 ABG Base Excess -2.6 mmol/L (-2.0-2.0) L 07/18/23 11:35 Adan Test Pos 07/18/23 11:35 Hematocrit 33.4 % (42-52) L 07/18/23 11:35 O2 Delivery Device Nc 07/18/23 11:35 O2 Liters/Min 3.0 % 07/18/23 11:35 FiO2 32.0 % 07/18/23 11:35 Project Structural Engineer ID Cak 07/18/23 11:35 Sodium 147 mmol/L (136-145) H 07/23/23 03:18 Potassium 4.4 mmol/L (3.5-5.1) 07/23/23 03:18 Chloride 116 mmol/L (98-107) H 07/23/23 03:18 Carbon Dioxide 17 mmol/L (22-29) L 07/23/23 03:18 Anion Gap 18.4 (5-19) 07/23/23 03:18 BUN 84 mg/dL (8-23) H* 07/23/23 03:18 Creatinine 2.8 mg/dL (0.7-1.2) H 07/23/23 03:18 GFR Calculation Not Reportable 07/23/23 03:18 Glucose 113 mg/dL (65-115) 07/23/23 03:18 POC Glucose 98 mg/dL (70-110) 07/18/23 20:35 Calculated Osmolality 330 mOsm/kg (285-295) H 07/23/23 03:18 Lactic Acid 3.5 mmol/L (0.5-2.2) H 07/18/23 12:24 Lactic Acid (Sepsis) 2.9 mmol/L (0.5-2.2) H 07/18/23 16:55 Calcium 8.3 mg/dL (8.5-10.5) L 07/23/23 03:18 Magnesium 2.4 mg/dL (1.7-2.3) H 07/21/23 03:33 Total Bilirubin 1.2 mg/dL (0.15-1.2) 07/23/23 03:18 AST 115 U/L (0-40) H 07/23/23 03:18 ALT 219 U/L (0-41) H 07/23/23 03:18 Alkaline Phosphatase 70 U/L (40-130) 07/23/23 03:18 Creatine Kinase 557 U/L (39-308) H* 07/22/23 05:01 Troponin T Baseline 92 ng/L (0-15) H 07/18/23 12:24 Troponin T 120 Minute 81.14 ng/L (0-15) H 07/18/23 14:00 Delta Troponin T -10.86 ABS# (0-10) L 07/18/23 14:00 Troponin T Hi Sens 6Hr 85.41 ng/L (0-15) H 07/18/23 18:38 Troponin T Hi Sens 6Hr Delta -6.59 ng/L (0-12) L 07/18/23 18:38 NT-Pro-B Natriuret Pep 05372 pg/mL (0-450) H 07/19/23 05:41 Total Protein 5.8 g/dL (6.6-8.7) L 07/23/23 03:18 Albumin 2.9 g/dL (3.5-5.2) L 07/23/23 03:18 Globulin 2.9 g/dL (1.3-4.6) 07/23/23 03:18 TSH 2.48 uIU/mL (0.27-4.20) 07/21/23 03:33 Urine Color Yellow (Yellow) 07/18/23 12:07 Urine Appearance Clear (CLEAR) 07/18/23 12:07 Urine pH 5 (5-7) 07/18/23 12:07 Ur Specific Ren[place] 1.025 (1.005-1.030) 07/18/23 12:07 Urine Protein 1+ (Negative) H 07/18/23 12:07 Urine Glucose (UA) Norm (Normal) 07/18/23 12:07 Urine Ketones Negative (Negative) 07/18/23 12:07 Urine Blood 3+ (Negative) H 07/18/23 12:07 Urine Nitrate Negative (Negative) 07/18/23 12:07 Urine Bilirubin Neg (Negative) 07/18/23 12:07 Urine Urobilinogen Norm mg/dL (Negative) 07/18/23 12:07 Ur Leukocyte Esterase Negative (Negative) 07/18/23 12:07 Urine RBC 5-10 /hpf (0-2) H 07/18/23 12:07 Urine WBC Rare /hpf (0-5) 07/18/23 12:07 Ur Squamous Epith Cells None /hpf (0-5) 07/18/23 12:07 Amorphous Sediment Not Reportable 07/18/23 12:07 Urine Bacteria Trace /hpf (NONE) 07/18/23 12:07 Urine Mucus Trace /hpf 07/18/23 12:07 Vancomycin Trough 16.1 ug/mL (10-15) H 07/21/23 11:05 Vitals Last Vital Signs Temp 98.4 F 07/23/23 20:00 Pulse 95 07/24/23 00:00 Resp 13 07/24/23 00:00 BP 91/70 07/23/23 20:00 Pulse Ox 92 07/24/23 00:00 O2 Del Method Room Air 07/24/23 00:00 O2 Flow Rate 3 07/23/23 12:00 Discharge Plan Discharge Patient Disposition: Xfer SNF Condition: Stable Prescriptions: Discontinued atorvastatin 80 mg tablet 80 mg PO DAILY clopidogrel 75 mg tablet 75 mg PO DAILY losartan 50 mg tablet 25 mg PO DAILY metoprolol tartrate 25 mg tablet 12.5 mg PO BID Eliquis 5 mg tablet 5 mg PO BID Qty: 180 3RF Nattokinase 1 tab PO DAILY@0800 Vitamin D3 25 mcg (1,000 unit) Capsule 25 mcg PO DAILY tamsulosin 0.4 mg capsule 0.4 mg PO BEDTIME Discharge Orders: Discharge Order (Routine); Ordered 07/24/23 Ordered By: Lori Driver Referrals: [facility] [Outside] Shree Gonzalez FNP-C [Primary Care Provider] - Discharge Diet: As Directed Patient Instructions: Heart Failure (DC), Altered Mental Status (ED), CHF Stoplight, Opioid Safety Discharge Attestations Time Spent in Discharge Care*: less than 30 min Quality Metrics Clinical Quality Measures [ No reported AMI, CVA or VTE this stay] Coding Level of Care Code 78322 Diagnoses AMS (altered mental status) R41.82 Rhabdomyolysis M62.82 Atrial fibrillation with RVR I48.91 Pneumonia J18.9 CVA (cerebral vascular accident) I63.9 Chronic obstructive pulmonary disease, unspecified J44.9 Hypernatremia E87.0 Acute encephalopathy G93.40
[2023-07-24 15:16] LABS: SARS Covid-2 Antigen negative (Negative)
--- NOTE | 2023-07-24 20:48 | PC.NURSE ---
Patient is being transfered via EMS to [facility], patients glasses and dentres were only belongings and were sent with the patient. Nurse called to make [facility] aware of transfer. Attempted to call MIC regarding but no answer at both attempts.
== END 2023-07-24 20:59 | disposition hospice, home (50) | DRG 64 ==
LOC: ER 13:33 → ICU 14:40 → CSU 07-20 08:17
PROVIDERS: Internal Medicine; Admitting Provider Internal Medicine; Emergency Provider Emergency Medicine; PCP Nurse Practitioner; Visit Provider Internal Medicine
DX: I63.9 Cerebral infarction, unspecified (principal); J18.9 Pneumonia, unspecified organism; E87.0 Hyperosmolality and hypernatremia; G93.49 Other encephalopathy; J44.0 Chronic obstructive pulmonary disease with (acute) lower respiratory infection; I48.20 Chronic atrial fibrillation, unspecified; N17.9 Acute kidney failure, unspecified; M62.82 Rhabdomyolysis; R13.10 Dysphagia, unspecified; R47.1 Dysarthria and anarthria; I95.9 Hypotension, unspecified; I73.9 Peripheral vascular disease, unspecified; N40.1 Benign prostatic hyperplasia with lower urinary tract symptoms; R33.8 Other retention of urine; I25.10 Atherosclerotic heart disease of native coronary artery without angina pectoris; R31.9 Hematuria, unspecified; D64.9 Anemia, unspecified; E86.0 Dehydration; Z66 Do not resuscitate; B95.8 Unspecified staphylococcus as the cause of diseases classified elsewhere; I25.2 Old myocardial infarction; Z11.52 Encounter for screening for COVID-19; Z79.01 Long term (current) use of anticoagulants; Z79.02 Long term (current) use of antithrombotics/antiplatelets; Z95.5 Presence of coronary angioplasty implant and graft; Z87.891 Personal history of nicotine dependence; Z91.128 Patient's intentional underdosing of medication regimen for other reason
CPT/HCPCS: 36415; 36416; 36600; 51702; 70450; 71045; 71275; 72125; 73020; 74177; 80048; 80053; 80202; 81001; 82550; 82803; 82962; 83605; 83735; 83880; 84443; 84484; 85025; 85610; 87040; 87077; 87150; 87186; 87205; 87426; 92523; 92610; 93005; 94664; 96365; 96366; 96367; 96372; 96376; 97161; 97165; 97166; 97530; 97535; 99285; A4222; J0283; J1650; J2270; J2543; J3370; J3490; J7030; J7050; J7070; Q9967